=== PATIENT | male | born 1975 | race Caucasian/White ===

== ENCOUNTER 2017-01-22 09:21 | Inpatient (IN) ==
[2017-01-22 10:03] LABS: BASOPHILS # (AUTO) 0.1 K/uL (0-0.2); BASOPHILS % (AUTO) 0.6 % (0.0-3.0); EOSINOPHILS # (AUTO) 0.4 K/ul (0.0-0.7); EOSINOPHILS % (AUTO) 4.1 % (0.0-7.0); HEMATOCRIT 46.1 % (42.0-52.0); HEMOGLOBIN 15.8 g/dl (14.0-18.0); IMMATURE GRANULOCYTE % (AUTO) 0.4 % (0.0-5.0); LYMPHOCYTES # (AUTO) 2.7 K/uL (0.60-3.4); LYMPHOCYTES % (AUTO) 26.9 (10.0-50.0); MEAN CORPUSCULAR HEMOGLOBIN 30.1 pg (27.0-31.0); MEAN CORPUSCULAR HGB CONC 34.3 (31.8-35.4); MEAN CORPUSCULAR VOLUME 87.8 fl (80.0-94.0); MONOCYTES # (AUTO) 0.4 K/uL (0.4-2.0); MONOCYTES % (AUTO) 4.2 (0-10); NEUTROPHILS # (AUTO) 6.4 K/ul (2.0-6.9); NEUTROPHILS % (AUTO) 63.8; PLATELET COUNT 258 10^3/uL (140-440); RED BLOOD COUNT 5.25 10^6/ul (4.70-6.10); WHITE BLOOD COUNT 9.97 K/ul (4.2-10.2)
[2017-01-22 10:24] LABS: ALBUMIN 3.7 g/dL (3.4-5.0); ALBUMIN/GLOBULIN RATIO 0.97; ANION GAP 19.1; BILIRUBIN,TOTAL 0.47 mg/dL (0.00-1.20); BUN/CREATININE RATIO 13.68; CALCIUM 9.8 mg/dL (8.2-10.2); CREATININE 0.95 mg/dL (0.60-1.10); POTASSIUM 4.1 mmol/L (3.5-5.1); TOTAL PROTEIN 7.5 g/dL (6.4-8.2)
[2017-01-22 10:30] LABS: CREATINE KINASE 38 U/L
--- NOTE | 2017-01-22 11:29 | ED.PDOC ---
General ED Provider: Dr. BEATRIZ VOGT Chief Complaint: Hypertension Stated Complaint: hypertension Time Seen by Physician: 09:22 (jaw pain) Mode of Arrival: Walk-In Information Source: Patient Exam Limitations: No limitations Primary Care Provider: BEATRIZ RAYMOND Nursing and Triage Documentation Reviewed and Agree: Yes Cardiovascular Complaint Exam - Hypertension Complaint/Exam Onset/Duration: this morning Symptoms Are: Resolved Timing: Intermittent Reported B/P Prior to Arrival: 199/100 Aggravating: Reports: None Alleviating: Reports: None Associated Signs and Symptoms: Denies: Chest pain, Vision changes, Anxiety, Recent stress, Headache, Numbness, Tingling, Weakness, Dizziness, Short of air, Swelling Related History: Reports: Similar episode Related Surgical History: Reports: None Cardiac Risk Factors: Reports: Hypertension Recent Change in Medications: No A/V Nicking: No Papilledema Present: No JVD Present: No Carotid Bruit Present: No Femoral Pulses Bounding: No Quality Indicator For Non-Traumatic Chest Pain/Syncope: EKG Performed Review of Systems - Review Of Systems Constitutional: Reports: No symptoms Eyes: Reports: No symptoms Ears, Nose, Mouth, Throat: Reports: Mouth pain (jaw pain ) Respiratory: Reports: No symptoms Cardiac: Reports: No symptoms GI: Reports: No symptoms : Reports: No symptoms Musculoskeletal: Reports: No symptoms Skin: Reports: No symptoms Neurological: Reports: No symptoms Endocrine: Reports: No symptoms Hematologic/Lymphatic: Reports: No symptoms All Other Systems: Reviewed and Negative Past Medical History - Past Medical History Previously Healthy: Yes Endocrine: Reports: None Cardiovascular: Reports: Hypertension Respiratory: Reports: None Hematological: Reports: None Gastrointestinal: Reports: None Genitourinary: Reports: None Neuro/Psych: Reports: None Musculoskeletal: Reports: None Cancer: Reports: None - Surgical History General Surgical History: Reports: None - Family History Family History: Reports: None - Social History Smoking Status: Former smoker Hx Substance Use: No Alcohol Screening: Occasionally Physical Exam - Physical Exam Appearance: Well-appearing, No pain distress, Well-nourished Eyes: [place], EOMI, Conjunctiva clear ENT: Ears normal, Nose normal, Oropharynx normal Respiratory: Airway patent, Breath sounds clear, Breath sounds equal, Respirations nonlabored Cardiovascular: RRR, Pulses normal, No rub, No murmur GI/: Soft, Nontender, No masses, Bowel sounds normal, No Organomegaly Musculoskeletal: Normal strength, ROM intact, No edema, No calf tenderness Skin: Warm, Dry, Normal color Neurological: Sensation intact, Motor intact, Reflexes intact, Cranial nerves intact, Alert, Oriented Psychiatric: Affect appropriate, Mood appropriate Interpretation - Weight Shifter Rate: Tachy Rhythm: Sinus - EKG Interpretation Rate: Tachy Rhythm: Sinus Physician Notification - Case Discussed Physician Notified: melani BASHIR Time of Notification: 11:30 (ADMITT) Admit To: Inpatient Critical Care Note - Critical Care Note Total Time (mins): 0 Course - Course Hematology/Chemistry: 01/22/17 10:00 01/22/17 10:00 Orders, Labs, Meds: Lab Review 01/22/17 10:00 WBC 9.97 RBC 5.25 Hgb 15.8 Hct 46.1 MCV 87.8 MCH 30.1 MCHC 34.3 RDW Coeff of [place] 13.5 Plt Count 258 Immature Gran % (Auto) 0.4 Neut % (Auto) 63.8 Lymph % (Auto) 26.9 [place] % (Auto) 4.2 Eos % (Auto) 4.1 Baso % (Auto) 0.6 Immature Gran # (Auto) 0.0 Neut # 6.4 Lymph # 2.7 [place] # 0.4 Eos # 0.4 Baso # 0.1 Sodium 143 Potassium 4.1 Chloride 99 Carbon Dioxide 29 Anion Gap 19.1 BUN 13 Creatinine 0.95 Estimated GFR (MDRD) 87.00 BUN/Creatinine Ratio 13.68 Glucose 203 H Calcium 9.8 Total Bilirubin 0.47 AST 23 ALT 37 Alkaline Phosphatase 76 Total Creatine Kinase 38 Troponin I < 0.0100 Total Protein 7.5 Albumin 3.7 Globulin 3.8 Albumin/Globulin Ratio 0.97 Orders Category Date Time Status EKG-(ED ONLY) Stat CARDIO 01/22/17 10:05 Completed EKG-(ED ONLY) Stat CARDIO 01/22/17 11:00 Completed CBC W/ AUTO DIFF Stat LAB 01/22/17 10:00 Completed COMPREHENSIVE METABOLIC PANEL Stat LAB 01/22/17 10:00 Completed CREATINE KINASE Stat LAB 01/22/17 10:00 Completed TROPONIN I Stat LAB 01/22/17 10:00 Completed Vital Signs: Temp Pulse Resp BP Pulse Ox 01/22/17 09:22 98.4 F 119 H 20 195/109 H 96 ARAMIS Risk Score ARAMIS Risk Score: Risk Score Odds of by 30D 0 0.1 (0.1-0.2) 1 0.3 (0.2-0.3) 2 0.4 (0.3-0.5) 3 0.7 (0.6-0.9) 4 1.2 (1.0-1.5) 5 2.2 (1.9-2.6) 6 3.0 (2.5-3.6) 7 4.8 (3.8-6.1) Departure - Departure Time of Disposition: 11:30 Disposition: ADMITTED INPATIENT Discharge Problem: Hypertension Qualifiers: Hypertension type: unspecified Qualifier Code: (I10) Essential (primary) hypertension Instructions: Hypertension (ED) Condition: Good Pt referred to PMD for follow-up: Yes Additional Instructions: Please call your Family Physician as soon as possible to schedule a follow-up appointment. Allergies/Adverse Reactions: Allergies Penicillins Adverse Reaction (Verified 01/22/17 09:28) Home Medications: Ambulatory Orders Hydrochlorothiazide 12.5 mg PO DAILY 01/22/17 Lisinopril [Zestril] 40 mg PO DAILY 01/22/17
--- NOTE | 2017-01-22 12:53 | DI ---
Exam: Two x-rays of the chest. Comparison: 12/09/2013. Reason for exam: Hypertension with pain. FINDINGS: No pneumothorax, pleural effusion, focal consolidation. The cardiac silhouette is not en larged. The imaged osseous structures appear grossly unremarkable without acute fracture. Impression: No acute cardiopulmonary process.
[2017-01-22 13:21] VITALS: BMI 39.4
[2017-01-22] MEDS ORDERED: DECADRON 4 MG/ML SDV IVP STA (13:24)
[2017-01-22] MEDS ORDERED: VASOTEC IV IVP PRN (13:25)
[2017-01-22] MEDS ORDERED: TORADOL IVP SCH (13:30)
[2017-01-22] MEDS: SODIUM CHLORIDE 1,000 ML IV SCH (13:38)
[2017-01-22] MEDS: NORVASC PO SCH ×2 (13:45→20:39)
[2017-01-22] MEDS ORDERED: ZEBETA PO SCH (14:00)
[2017-01-22 18:20] LABS: CREATINE KINASE 33 U/L
[2017-01-22] MEDS: TORADOL IVP SCH (20:37)
[2017-01-23 01:49] LABS: BASOPHILS # (AUTO) 0.1 K/uL (0-0.2); BASOPHILS % (AUTO) 0.4 % (0.0-3.0); EOSINOPHILS % (AUTO) 0.1 % (0.0-7.0); HEMATOCRIT 45.2 % (42.0-52.0); HEMOGLOBIN 15.4 g/dl (14.0-18.0); IMMATURE GRANULOCYTE % (AUTO) 0.6 % (0.0-5.0); LYMPHOCYTES # (AUTO) 2.1 K/uL (0.60-3.4); LYMPHOCYTES % (AUTO) 15.4 (10.0-50.0); MEAN CORPUSCULAR HGB CONC 34.1 (31.8-35.4); MEAN CORPUSCULAR VOLUME 87.9 fl (80.0-94.0); MONOCYTES # (AUTO) 0.5 K/uL (0.4-2.0); MONOCYTES % (AUTO) 3.5 (0-10); NEUTROPHILS # (AUTO) 10.9 K/ul (2.0-6.9); PLATELET COUNT 277 10^3/uL (140-440); RED BLOOD COUNT 5.14 10^6/ul (4.70-6.10); WHITE BLOOD COUNT 13.61 K/ul (4.2-10.2)
[2017-01-23] MEDS: SODIUM CHLORIDE 1,000 ML IV SCH ×2 (01:58→16:30)
[2017-01-23 02:08] LABS: ALBUMIN 3.4 g/dL (3.4-5.0); ALBUMIN/GLOBULIN RATIO 0.89; ANION GAP 13.7; BILIRUBIN,TOTAL 0.35 mg/dL (0.00-1.20); BUN/CREATININE RATIO 14.77; CALCIUM 9.8 mg/dL (8.2-10.2); CREATININE 0.88 mg/dL (0.60-1.10); POTASSIUM 4.7 mmol/L (3.5-5.1); TOTAL PROTEIN 7.2 g/dL (6.4-8.2)
[2017-01-23 02:14] LABS: TROPONIN I 0.015 ng/ml (0.0000-0.4000)
[2017-01-23 08:50] LABS: CHOL/HDL RATIO 5.6 (4.5-6.4)
[2017-01-23] MEDS ORDERED: NON-FORMULARY MEDICATION (Hydrochlorothiazide [Hydrochlorothiazide] 12.5 MG) PO SCH ×22 (09:00)
[2017-01-23] MEDS ORDERED: ZEBETA PO SCH (09:00)
[2017-01-23] MEDS ORDERED: ZESTRIL PO SCH (09:00)
[2017-01-23] MEDS: HYDROCHLOROTHIAZIDE PO SCH (09:36)
[2017-01-23] MEDS: NORVASC PO SCH ×2 (09:36→21:09)
[2017-01-23] MEDS: TORADOL IVP SCH ×2 (09:43→21:09)
--- NOTE | 2017-01-23 10:56 | HP ---
DATE OF SERVICE: 01/22/17 HISTORY OF PRESENT ILLNESS: This is a 41-year-old male who presented to the emergency room complaining of headache and left jaw pain. He has history of hypertension. He has not had a regular primary care provider in the past year due to insurance issues so his treatment of hypertension has been sporadic. He also has a history of dyslipidemia. REVIEW OF SYSTEMS: CONSTITUTIONAL: No night sweats. No fatigue, malaise, lethargy. No fever or chills. HEENT: Left-sided jaw pain. Headache. No eye drainage. RESPIRATORY: No shortness of breath. No cough, no congestion. No hemoptysis. CARDIOVASCULAR: Patient reports heaviness at times with exertion. No orthopnea. No angina symptoms. No CHF symptoms. No atypical chest pain for CAD. No palpitations. GASTROINTESTINAL: No abdominal pain. No nausea or vomiting. No diarrhea or constipation. No hematemesis. No hematochezia. GENITOURINARY: No dysuria. No hematuria. No obstructive symptoms. No discharge. No pain. No significant abnormal bleeding. MUSCULOSKELETAL: No musculoskeletal pain. No joint swelling or redness. No weakness. NEUROLOGICAL: Alert and oriented. No deficits. PSYCHIATRIC: Not anxious. No depression. No suicidal thoughts. No homicidal thoughts. SKIN: Intact. ENDOCRINE: No unexplained weight loss. No weight gain. HEMATOLOGIC/LYMPHATIC: No anemia. No purpura. No petechiae. No prolonged or excessive bleeding. No palpable lymph nodes. PERSONAL/FAMILY/SOCIAL HISTORY: Mother - diabetes mellitus, Type 2, coronary artery disease, thyroid cancer. Father - coronary artery disease, by MA. Social: The patient is a smoker 1/2 pack per day. Denies any alcohol or ilicit drug use. Lives with his significant other. 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 Again, has no insurance. PAST MEDICAL: 1. Hypertension 2. Dyslipidemia 3. Obesity 4. GERD 5. Carpal tunnel syndrome right hand PAST SURGICAL HISTORY: 1. Carpal tunnel repair of right hand 2. Colonoscopy and upper GI last year, [address] De La Cruz MEDICATIONS: (HOME) 1. Lisinopril 40 mg p.o. daily 2. Hydrochlorothiazide 12.5 mg p.o. p.r.n. ALLERGIES: PENICILLIN PHYSICAL EXAMINATION: GENERAL: The patient is well-appearing in apparent distress. Well-nourished. VITAL SIGNS: Temperature 98.4, heart rate 119, respirations 20, BP 195/199, pulse ox 96% on room air. HEENT: Unremarkable. Pupils are equal, round and reactive to light and accomodation. Conjunctiva clear. NECK: Supple. No JVD, no carotid bruit. No lymphadenopathy or thyromegaly. LUNGS: Diminished breath sounds bilaterally. Breath sounds clear and equal. Respirations nonlabored. Percussion note normal. Chest symmetrical. HEART: S1, S2, no S3. No murmurs, rubs or gallops. ABDOMEN: Soft. Nontender. Bowel sounds active times four quadrants. No hepatosplenomegaly. No guarding or tenderness. No mass felt. MUSCULOSKELETAL: The patient has full range of motion, normal strength of all extremities. No edema. No calf tenderness. No joint swelling, no redness. SKIN: Intact, warm and dry. NEUROLOGIC: The patient is alert and oriented times three. Cranial nerves intact. PSYCHIATRIC: Affect and mood both appropriate. LYMPHATIC: No palpable lymph nodes/no lymphedema. LABS: White count 9.9, hemoglobin 15.8, hematocrit 46.1. Sodium 143, potassium 4.1, BUN 13, creatinine 0.95. Glucose 203. AST 23, ALT 37, alkaline phosphatase 76, total CK 38, troponin less than 0.01. ASSESSMENT: 1. HYPERTENSION 2. CHEST PAIN WITH EXERTION 3. OBESITY PLAN: 1. Admit patient with routine telemetry orders. 2. Will continue chest pain protocol. 3. Chest x-ray 4. CBC, CMP daily 5. Vasotec 1.25 mg IV push q.6hr p.r.n. for systolic greater than 160 6. Start Zebeta 5 mg daily 7. Start Norvasc 5 mg b.i.d. 8. Lipid panel 9. A1C 10. T4, TSH 11. Regular diet 12. Will monitor closely TIME SPENT: More than 70 minutes. MTDD
--- NOTE | 2017-01-23 13:31 | PCM.PROG ---
Attending Provider: ATTENDING PROVIDER: [facility] DATE OF SERVICE: 01/23/17 SUBJECTIVE: This 41 year old WHITE/ M was hospitalized 01/22/17. The patient is seen with Opal, Nurse Practitioner. The patient is alert, sitting on the side of the bed. He states he slept well. He has been out to smoke. He denies chest pain or jaw pain through the evening. Headache improving. REVIEW OF SYSTEMS: CONSTITUTIONAL: No night sweats. No fatigue, malaise, lethargy. No fever or chills. HEENT: Eyes: No visual changes. No eye pain. No eye discharge. ENT: No runny nose. No epistaxis. No sinus pain. No odynophagia. No congestion. RESPIRATORY: No cough, no congestion. No hemoptysis. No shortness of breath. CARDIOVASCULAR: No angina symptoms. No CHF symptoms. No atypical chest pain for CAD. No palpitations. No orthopnea.. GASTROINTESTINAL: No abdominal pain. No nausea or vomiting. No diarrhea or constipation. No hematemesis. No hematochezia. GENITOURINARY: No urgency. No frequency. No dysuria. No hematuria. No obstructive symptoms. No discharge. No pain. No significant abnormal bleeding. MUSCULOSKELETAL: No musculoskeletal pain; no joint swelling. NEUROLOGICAL: Awake, alert, oriented to time, place and person. Positive for headache. No neck pain. No syncope. No seizures. No dizziness. PSYCHIATRIC: Not anxious. No depression. No suicidal thoughts. No homicidal thoughts. SKIN: No rash. No lesions. No wounds. ENDOCRINE: No unexplained weight loss. No weight gain. HEMATOLOGIC/LYMPHATIC: No anemia. No purpura. No petechiae. No prolonged or excessive bleeding. No palpable lymph nodes. PHYSICAL EXAMINATION: GENERAL: The patient is awake, alert and oriented, lying/sitting in bed in no distress. VITAL SIGNS: Temperature 97.8 F, Pulse 73, Respiratory Rate 23, BP 157/94, Pulse Ox 94% HEENT: Head normocephalic, atraumatic. Eyes: Extraocular muscles are intact. Pupils are equal, round and reactive to light and accommodation. Ears: No lesions. Nose appeared normal. Throat: No exudate or erythema. NECK: Supple. No JVD, no carotid bruit. No lymphadenopathy or thyromegaly. LUNGS: Diminished breath sounds bilaterally. Clear to auscultation. Percussion note normal. Chest symmetrical. HEART: S1, S2, no S3. No murmurs. No cyanosis or clubbing. No ascites. Pulses: Dorsalis pedis and posterior tibial pulses +1 to +2 both sides. ABDOMEN: Soft. Non-tender. Bowel sounds active. No CVA tenderness. No mass felt. EXTREMITIES: No edema. Full range of motion of all extremities, equal. NEUROLOGIC: No focal deficit. Cranial nerves II through XII are grossly intact. No headache, no double vision or headache. SKIN: Not dry. Intact. Turgor-normal. LYMPHATIC: No palpable lymph nodes/no lymphedema. MUSCULOSKELETAL: Normal joints with no swelling. Muscle tone is normal. LAB REVIEW: 01/23/17 01:45 01/23/17 01:45 01/23/17 01:45: WBC 13.61 H, RBC 5.14, Hgb 15.4, Hct 45.2, MCV 87.9, MCH 30.0, MCHC 34.1, RDW Coeff of [place] 13.3, Plt Count 277, Immature Gran % (Auto) 0.6, Neut % (Auto) 80.0, Lymph % (Auto) 15.4, [place] % (Auto) 3.5, Eos % (Auto) 0.1, Baso % (Auto) 0.4, Immature Gran # (Auto) 0.1, Neut # 10.9 H, Lymph # 2.1, [place] # 0.5, Eos # 0.0, Baso # 0.1, Sodium 141, Potassium 4.7, Chloride 103, Carbon Dioxide 29, Anion Gap 13.7, BUN 13, Creatinine 0.88, Estimated GFR (MDRD) 95.00 , BUN/Creatinine Ratio 14.77, Glucose 143 H D, Calcium 9.8, Total Bilirubin 0.35 , AST 20, ALT 37, Alkaline Phosphatase 71, Total Creatine Kinase 34, Troponin I 0.0150, Total Protein 7.2, Albumin 3.4, Globulin 3.8, Albumin/Globulin Ratio 0.89 01/22/17 17:45: Total Creatine Kinase 33, Troponin I < 0.0100 ASSESSMENT: 1. Hypertension 2. Obesity 3. Smoker 4. History of dyslipidemia PLAN: 1. Lipid panel 2. T4, TSH 3. A1C 4. Echo if not done 5. Zestril 40 mg 6. Continue Norvasc Plan and coordination of the patient's care discussed in the presence of Filling Mixer and nurse. CONDITION: Stable SCRIBED BY: WEN ROBERTSON Derrick Hand scribed while in presence of service performed by Dr. SONALI DOMÍNGUEZ-[facility]/OPAL RILEY APRN on 01/23/17 ([id number])
[2017-01-23] MEDS ORDERED: MYLANTA SUSP PO STA (21:03)
[2017-01-23] MEDS: ZESTRIL PO SCH (21:09)
[2017-01-24 04:41] LABS: BASOPHILS # (AUTO) 0.1 K/uL (0-0.2); BASOPHILS % (AUTO) 0.9 % (0.0-3.0); EOSINOPHILS # (AUTO) 0.3 K/ul (0.0-0.7); EOSINOPHILS % (AUTO) 2.4 % (0.0-7.0); HEMATOCRIT 43.2 % (42.0-52.0); HEMOGLOBIN 14.5 g/dl (14.0-18.0); IMMATURE GRANULOCYTE % (AUTO) 0.6 % (0.0-5.0); LYMPHOCYTES # (AUTO) 4.3 K/uL (0.60-3.4); LYMPHOCYTES % (AUTO) 38.2 (10.0-50.0); MEAN CORPUSCULAR HEMOGLOBIN 29.8 pg (27.0-31.0); MEAN CORPUSCULAR HGB CONC 33.6 (31.8-35.4); MEAN CORPUSCULAR VOLUME 88.9 fl (80.0-94.0); MONOCYTES # (AUTO) 0.6 K/uL (0.4-2.0); MONOCYTES % (AUTO) 5.3 (0-10); NEUTROPHILS # (AUTO) 5.9 K/ul (2.0-6.9); NEUTROPHILS % (AUTO) 52.6; PLATELET COUNT 249 10^3/uL (140-440); RED BLOOD COUNT 4.86 10^6/ul (4.70-6.10); WHITE BLOOD COUNT 11.27 K/ul (4.2-10.2)
[2017-01-24 05:02] LABS: ALBUMIN 3.1 g/dL (3.4-5.0); ALBUMIN/GLOBULIN RATIO 0.91; ANION GAP 15.6; BILIRUBIN,TOTAL 0.24 mg/dL (0.00-1.20); BUN/CREATININE RATIO 17.34; CREATININE 0.98 mg/dL (0.60-1.10); POTASSIUM 3.6 mmol/L (3.5-5.1); TOTAL PROTEIN 6.5 g/dL (6.4-8.2)
[2017-01-24] MEDS: SODIUM CHLORIDE 1,000 ML IV SCH (05:09)
[2017-01-24 05:37] VITALS: BP 133/78; TEMP 97.5
[2017-01-24] MEDS: HYDROCHLOROTHIAZIDE PO SCH (08:51)
[2017-01-24] MEDS: TORADOL IVP SCH (08:51)
[2017-01-24] MEDS: NORVASC PO SCH (08:52)
[2017-01-24] MEDS: ZESTRIL PO SCH (08:52)
[2017-01-24] MEDS ORDERED: ZEBETA PO SCH (09:00)
--- NOTE | 2017-01-24 10:37 | CM.DICTOOL ---
ADMISSION: 01/22/17 11:34 DISCHARGE: 01/24/17 DATE OF SERVICE: 01/24/17 FINAL DIAGNOSIS HYPERTENSION, UNCONTROLLED JAW PAIN, R/O CAD DYSLIPIDEMIA COPD (CURRENT SMOKER) OBESITY (BMI 39.4) GERD CARPAL TUNNEL REPAIR, RIGHT COLONOSCOPY AND UPPER GI, 2016 (DR. MOON) LAST VITALS Temp Pulse Resp BP Pulse Ox 97.5 F L 84 18 133/78 93 L 01/24/17 05:36 01/24/17 05:36 01/24/17 05:36 01/24/17 05:36 01/24/17 05:36 ACTIVE MEDICATIONS Amlodipine Besylate (Norvasc) 5 mg PO BEDTIME SHAVONNE (NEW PRESCRIPTION) Last Admin: 01/24/17 08:52 Dose: 5 mg Hydrochlorothiazide 12.5 mg PO PRN (DISCONTINUED HOME MEDICATION) Lisinopril (Zestril) 40 mg PO BID SHAVONNE (NEW PRESCRIPTION INCREASED FROM HOME DOSE) Last Admin: 01/24/17 08:52 Dose: 40 mg ALLERGIES Penicillins Adverse Reaction (Verified 01/22/17 09:28) NEW PRESCRIPTIONS: TENORETIC 50-25 MG, TAKE ONE TABLET BY MOUTH DAILY NORVASC 10 MG, TAKE ONE TABLET BY MOUTH AT BEDTIME DAILY ZESTRIL 40 MG, TAKE ONE TABLET BY MOUTH TWICE DAILY PRAVACHOL 40 MG, TAKE ONE TABLET BY MOUTH AT BEDTIME FENOFIBRATE 160 MG, TAKE ONE TABLET BY MOUTH DAILY SMOKING: SMOKING CESSATION HAS BEEN DISCUSSED WITH THE PATIENT. HE HAS BEEN MADE AWARE OF THE ADDED RISK TO HIS CARDIOVASCULAR HEALTH SHOULD HE CONTINUE THIS HABIT. HE UNDERSTANDS THESE IMPLICATIONS BUT HAS NOT COMMITTED TO STOPPING. WE WILL CONTINUE TO PROVIDE ENCOURAGEMENT FOR COMPLETE CESSATION AND REINFORCE TEACHING REGARDING THE RISKS AND BENEFITS. DISEASE SPECIFIC EDUCATION: HYPERTENSION ECHO/STRESS ECHO RESULTS MEDICATIONS HOME MEDICATIONS LIFESTYLE CHANGES NECESSARY TO REDUCE RISK FOR CAD SMOKING CESSATION ACTIVITY, DIET, WEIGHT LOSS FOLLOW UP LAB REVIEW: 01/24/17 04:30 01/24/17 04:30 01/24/17 04:30: WBC 11.27 H, RBC 4.86, Hgb 14.5, Hct 43.2, MCV 88.9, MCH 29.8, MCHC 33.6, RDW Coeff of [place] 13.5, Plt Count 249, Immature Gran % (Auto) 0.6, Neut % (Auto) 52.6, Lymph % (Auto) 38.2, [place] % (Auto) 5.3, Eos % (Auto) 2.4, Baso % (Auto) 0.9, Immature Gran # (Auto) 0.1, Neut # 5.9, Lymph # 4.3 H, [place] # 0.6, Eos # 0.3, Baso # 0.1, Sodium 144, Potassium 3.6, Chloride 102, Carbon Dioxide 30, Anion Gap 15.6, BUN 17, Creatinine 0.98, Estimated GFR (MDRD) 84.00 , BUN/Creatinine Ratio 17.34, Glucose 213 H, Calcium 9.0, Total Bilirubin 0.24, AST 17, ALT 34, Alkaline Phosphatase 66, Total Protein 6.5, Albumin 3.1 L, Globulin 3.4, Albumin/Globulin Ratio 0.91 PLAN: DISCHARGE HOME TODAY RETURN TO SEE DR. DOMÍNGUEZ IN ONE WEEK. PLEASE PHONE HIS OFFICE TO SCHEDULE YOUR FOLLOW UP APPOINTMENT ([phone]) DISCONTINUE YOUR HOME MEDICATIONS NEW PRESCRIPTIONS: TENORETIC 50-25 MG, TAKE ONE TABLET BY MOUTH DAILY NORVASC 10 MG, TAKE ONE TABLET BY MOUTH AT BEDTIME DAILY ZESTRIL 40 MG, TAKE ONE TABLET BY MOUTH TWICE DAILY PRAVACHOL 40 MG, TAKE ONE TABLET BY MOUTH AT BEDTIME FENOFIBRATE 160 MG, TAKE ONE TABLET BY MOUTH DAILY ACTIVITY: GET PLENTY OF REST AT HOME. GRADUALLY INCREASE YOUR ACTIVITY LEVEL ACCORDING TO YOUR TOLERATION DIET: HEALTHY HEART LOW SODIUM SUMMARY: THE PATIENT IS ALERT AND ORIENTED X3. HE CURRENTLY RESIDES AT HOME WITH HIS SIGNIFICANT OTHER. HE IS INDEPENDENT WITH ADL'S AND REQUIRES NO ASSISTANCE FOR AMBULATION. HE HAS NO HOME HEALTH OR HOMEMAKING SERVICES AT THIS TIME. HE DESIRES TO RETURN TO HIS HOME AT DISCHARGE. THE SKIN TURGOR IS INTACT AND WITHOUT DECUBITUS ULCERS. HYDRATION STATUS IS GOOD. THE PATIENT'S BLOOD PRESSURE READINGS HAVE RESPONDED VERY WELL TO THE MEDICATIONS ADDED. MR. PARSONS IS AWARE AND AGREEABLE FOR DISCHARGE PLANS TODAY. CURRENT CODE STATUS: FULL CODE SONALI DOMÍNGUEZ M.D.
--- NOTE | 2017-01-24 11:59 | ECHOSTRESS ---
Date of Exam: 01/24/17 Ordering Physician: HOSPITALIST--SONALI DOMÍNGUEZ Reason for Echo: HYPERTENSION, HEADACHE, JAW PAIN, STRESS TEST--NO ISCHEMIA M-Mode Normal Adult Results LV Dimensions Normal Adult Results AoV Opening excursions >1.6 LVEDD-base- 3.5-5.8 Ao root dimensions 2.0-3.7 LVESD-base- 3.1-4.6 L. Atrium dimensions 1.9-3.8 Post. Wall thickness 0.8-1.1 IV septum (thickness) 0.7-1.2 Post. Wall excursion 0.72-1.3 Septal motion Systolic motion R. Ventricular cavity 1.5-2.0 LVEF 60% Paradoxical septal wall motion 2-D: NORMAL LEFT VENTRICULAR CONTRACTILITY--RESTING AND POST EXERCISE M-MODE: MV: AV: TV: PV: CHAMBER SIZE: WALL MOTION: NORMAL LEFT VENTRICULAR CONTRACTILITY--RESTING AND POST EXERCISE PERICARDIUM: INTERPRETATION: 1. NORMAL LEFT VENTRICULAR CONTRACTILITY--RESTING AND POST EXERCISE MTDD
--- NOTE | 2017-01-24 12:05 | ECHO2D ---
Date of Exam: 01/24/17 Ordering Physician: HOSPITALIST--SONALI DOMÍNGUEZ Room #: [id number] Reason for Echo: HYPERTENSION, HEADACHE M-Mode Normal Adult Results LV Dimensions Normal Adult Results AoV Opening excursions >1.6 >1.6 LVEDD-base- 3.5-5.8 5.1 Ao root dimensions 2.0-3.7 3.9 LVESD-base- 3.1-4.6 L. Atrium dimensions 1.9-3.8 4.2 Post. Wall thickness 0.8-1.1 1.4 IV septum (thickness) 0.7-1.2 1.4 Post. Wall excursion 0.72-1.3 NORMAL Septal motion NORMAL Systolic motion R. Ventricular cavity 1.5-2.0 NORMAL LVEF 60% 52% Paradoxical septal wall motion NORMAL 2-D : MILDLY ENLARGED LEFT ATRIAL CAVITY--NORMAL VALVES--NORMAL LEFT VENTRICULAR CONTRACTILITY--NO EFFUSION, NO THROMBUS M-MODE: MV: NORMAL AV: NORMAL TV: NORMAL PV: CHAMBER SIZE: ENLARGED LEFT ATRIAL CAVITY WALL MOTION: NORMAL PERICARDIUM: NORMAL INTERPRETATION: 1. LEFT VENTRICULAR HYPERTROPHY WITH STIFF LEFT VENTRICLE-LEFT VENTRICULAR EJECTION FRACTION 52% 2. MILDLY ENLARGED LEFT ATRIAL CAVITY 3. NORMAL VALVES 4. NORMAL LEFT VENTRICLE SIZE MTDD
[2017-01-25 06:13] LABS: TESTOSTERONE 278 ng/dL (264-916)
--- NOTE | 2017-01-25 12:58 | PN ---
DATE OF SERVICE: 01/23/17 SUBJECTIVE: The patient is a 41 year old white male hospitalized with chest pain, hypertension, several cardiac risk factors. The patient's condition is stable. His blood pressure is coming down. This morning it was reported 157/94. This patient is now going to be on Zestril 40mg twice a day, Zebeta 5mg PO daily and Norvasc 5 twice a day. He is feeling better, no chest pain. He is up and about. REVIEW OF SYSTEMS: CONSTITUTIONAL: No night sweats. No fatigue, malaise, lethargy. No fever or chills. HEENT: Eyes: No visual changes. No eye pain. No eye discharge. ENT: No runny nose. No epistaxis. No sinus pain. No sore throat. No odynophagia. No congestion. RESPIRATORY: No cough, no congestion. No hemoptysis. No shortness of breath. CARDIOVASCULAR: No angina symptoms. No CHF symptoms. No atypical chest pain for CAD. No palpitations. No orthopnea. GASTROINTESTINAL: No abdominal pain. No nausea or vomiting. No diarrhea or constipation. No hematemesis. No hematochezia. GENITOURINARY: No urgency. No frequency. No dysuria. No hematuria. No obstructive symptoms. No discharge. No pain. No significant abnormal bleeding. MUSCULOSKELETAL: No musculoskeletal pain; no joint swelling. NEUROLOGICAL: No headache. No neck pain. No syncope. No seizures. No dizziness. PSYCHIATRIC: Not anxious. No depression. No suicidal thoughts. No homicidal thoughts. SKIN: No rash. No lesions. No wounds. ENDOCRINE: No unexplained weight loss. No weight gain. HEMATOLOGIC/LYMPHATIC: No anemia. No purpura. No petechiae. No prolonged or excessive bleeding. No palpable lymph nodes. PHYSICAL EXAMINATION: GENERAL: The is with the patient. HEENT: Head normocephalic, atraumatic. Eyes: Extraocular muscles are intact. Pupils are equal, round and reactive to light and accommodation. Ears: No lesions. Nose appeared normal. Throat: No exudate or erythema. NECK: Supple. No JVD, no carotid bruit. No lymphadenopathy or thyromegaly. LUNGS: Clear to auscultation. Percussion note normal. Chest symmetrical. HEART: S1, S2, no S3. No murmurs. No cyanosis or clubbing. No ascites. Pulses: Dorsalis pedis and posterior tibial pulses +1 to +2 both sides. ABDOMEN: Soft. Nontender. Bowel sounds active. No CVA tenderness. No mass felt. EXTREMITIES: No edema. Full range of motion of all extremities, equal. NEUROLOGIC: No focal deficit. Cranial nerves II through XII are grossly intact. No headache, no double vision or headache. SKIN: Not dry. Intact. Turgor - normal. LYMPHATIC: No palpable lymph nodes/no lymphedema. MUSCULOSKELETAL: Normal joints with no swelling. Muscle tone is normal. ASSESSMENT: 1. Chest pain, controlled 2. Jaw pain, controlled 3. Hypertension, a lot better 4. Obesity, counseling for morbid obesity done. Refuses bariatric center referral. PLAN: 1. Echo and stress echo in the morning The patient was seen with Nurse Practitioner. TIME SPENT: More than 30 minutes. Plan and coordination of the patient's care discussed in the presence of nurse. LETICIA
--- NOTE | 2017-01-25 14:47 | DS ---
DATE OF SERVICE: 01/24/17 FINAL DIAGNOSIS: 1. Hypertension, uncontrolled 2. Jaw pain, rule out coronary artery disease 3. Dyslipidemia 4. COPD (Current smoker) 5. Obesity (BMI 39.4) 6. GERD 7. Carpel Tunnel Repair, right 8. Colonoscopy and upper GI, 2016 (Dr. De La Cruz) LAST VITALS: Temperature 97.5, pulse 84, respiratory rate 18, blood pressure 133/78 and pulse ox 93%. DISCHARGE INSTRUCTIONS: Discharge home today. Return to see Dr. Johnson in one week. Discontinue your home medications. MEDICATIONS AT DISCHARGE: Norvasc 5nmg PO bedtime(NEW PRESCRIPTION) Hydrochlorothiazide 125mg PO PRN (DISCONTINUED HOME MEDICATION) Zestril 40mg twice a day (NEW PRESCRIPTION INCREASED FROM HOME DOSE) ALLERGIES: Penicillin NEW PRESCRIPTION: Tenoretic 50-25mg take one tablet PO daily Norvasc 10mg take one tablet PO at bedtime daily Zestril 40mg take one tablet PO twice daily Pravachol 40ng Take one tablet PO bedtime Fenofibrate 160mg PO daily DIET INSTRUCTIONS: Healthy heart Low Sodium ACTIVITY: Get plenty to rest at home. Gradually increase activity level according to toleration SMOKING: Smoking cessation has been discussed with the patient. he has been made aware of the added risk to his cardiovascular health should he continue this habit. He understands these implications but has no committed to stopping. We will continue to provide encouragement for complete cessation and reinforce teaching regarding the risks and benefits. 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 The patient had jaw pain; questionable, no chest pain, was short of breath. the patient has been under a lot of stress. His own physician declined to refill his medication. His list of medication he used be on Zestril and his blood pressure systolic was more than 200. The patient during the stay in the hospital under went echocardiogram which showed the LVH with enlarged LA cavity. Stress test was negative for ischemia but had severe hypertension with exercise. The patient has been put on Beta Jethro diuretic along with calcium channel jethro and ishmael inhibitors. He was also advised to take baby Aspirin. The patient's lipid profile was abnormal with total cholesterol of 211 and triglycerides are 250 with non-HDL of more than 150mg. He was put on Pravachol 40mg along with Fenofibrate. CAD risk factors discussed with the patient. Advised to quit smoking. Counseling for smoking done. The was with him. Advised to lose weight; he weights 244 pounds with 5'6" tall. He is morbidly obese. Diet discussed for the weight loss. Condition: Stable. The patient is advised not to go back to work until released. He has blood sugar of 213 at the time of discharge. A1c was 5.7. The patient is have random blood sugar done Accu-check before his discharge. The patient is to be followed by me in 5-7 days. CONDITION: Stable. TIME SPENT: More than 60 minutes. LETICIA
--- NOTE | 2017-01-25 14:48 | PN ---
01/22/17: Level 5 01/23/17: Intermediate 01/24/17: D as in discharge MTDD
--- NOTE | 2017-01-30 12:34 | STRESSECHO ---
Date of Test: 01/24/17 Reason for Exam: HYPERTENSION, HEADACHE Ordering Physician: HOSPITALIST--SONALI DOMÍNGUEZ Current Medications: NORVASC, HCTZ, ZESTRIL Physical Findings: S1, S2, NO S3 Resting EKG: SINUS RHYTHM/ NO ACUTE CHANGES Target Heart Rate: 151 STAGE MPH/GRADE HEART RATE BPM BLOOD PRESSURE mmhg RHYTHM S-T SEGMENT +/- UP DOWN SYMPTOMS,COMMENTS At Rest 71 138/82 SR X NONE 1 1.7/10% 100 180/102 SR X NONE 2 2.5/12% 120 198/112 SR X NONE 3 3.4/14% 4 4.2/16% 5 5.0/18% Immediately after 135 SR X FATIGUE Durations of Exercise: 7:02 Maximum Heart Rate Reached: 135 Reason for Termination: FATIGUE INTERPRETATION: 95% OXYGEN SATURATION AT REST /97% OXYGEN SATURATION WITH EXERCISE METS 10.6 1. NO EVIDENCE OF ISCHEMIA BY ST-T WAVE CHANGES 2. NO JAW PAIN OR CHEST DISCOMFORT OR PAIN 3. MODERATE TO SEVERE HYPERTENSION WITH EXERCISE 4. NO ARRHYTHMIAS NORMAL LEFT VENTRICULAR CONTRACTILITY--RESTING AND POST EXERCISE MTDD
== END 2017-01-24 13:51 | disposition home or self-care (01) | DRG 305 ==
LOC: ED 09:21 → MEDSURG B 11:34
PROVIDERS: ADMIT Internal Medicine; ATTEND Internal Medicine
DX: I10 Essential (primary) hypertension (principal); R68.84 Jaw pain; I25.10 Atherosclerotic heart disease of native coronary artery without angina pectoris; I51.7 Cardiomegaly; R51 Headache; E78.5 Hyperlipidemia, unspecified; J44.9 Chronic obstructive pulmonary disease, unspecified; E66.01 Morbid (severe) obesity due to excess calories; K21.9 Gastro-esophageal reflux disease without esophagitis; Z68.39 Body mass index [BMI] 39.0-39.9, adult; F17.200 Nicotine dependence, unspecified, uncomplicated; Z79.899 Other long term (current) drug therapy; Z71.6 Tobacco abuse counseling; Z82.49 Family history of ischemic heart disease and other diseases of the circulatory system
CPT/HCPCS: 36415; 80053; 80061; 82550; 83036; 84403; 84439; 84443; 84484; 85025; 93005; 93010; 97802; 99284

== ENCOUNTER 2017-02-11 12:08 | Outpatient (CLI) | END 2017-02-11 12:09 | disposition home or self-care (01) | LOC: CAR 12:08 | PROVIDERS: ATTEND Internal Medicine | DX: G47.30 Sleep apnea, unspecified (principal) | CPT/HCPCS: 95811 ==

== ENCOUNTER 2017-12-20 11:41 | Emergency (ER) ==
[2017-12-20] MEDS ORDERED: DECADRON 4 MG/ML SDV IM STA (11:49)
[2017-12-20 11:53] VITALS: BP 172/102; TEMP 98.7; BMI 45.1
--- NOTE | 2017-12-20 12:09 | DI ---
EXAM: Three views of the left foot HISTORY: Left foot pain and edema. COMPARISON: None FINDINGS: There is no cortical irregularity or displaced fracture of the left foot. There is no lyti c or blastic lesion. There is mild degenerative change of the first MTP joint. There is mild degene rative change in the midfoot. The soft tissues demonstrate mild swelling. IMPRESSION: 1. Mild soft tissue swelling with no displaced fracture. 2. Mild degenerative change in the midfoot.
--- NOTE | 2017-12-20 12:36 | ED.PDOC ---
General ED Provider: Dr. BEATRIZ VOGT Chief Complaint: Extremity Swelling/Pain Stated Complaint: left foot pain edema Time Seen by Physician: 11:45 (seen with nurse at all times ) Mode of Arrival: Walk-In Information Source: Patient Exam Limitations: No limitations Primary Care Provider: [facility] Nursing and Triage Documentation Reviewed and Agree: Yes Does patient meet sepsis criteria?: No System Inflammatory Response Syndrome: Not Applicable Sepsis Protocol: For patient's 13 years and over: Temp is 96.8 and below OR 101 and greater Pulse >90 BPM Resp >20/minute Acutely Altered Mental Status Are patient's symptoms suggestive of a new infection, such as: -Pneumonia -Skin, Soft Tissue -Endocarditis -UTI -Bone, Joint Infection -Implantable Device -Acute Abdominal Infection -Wound Infection -Meningitis -Blood Stream Catheter Infection -Unknown Musculoskeletal Complaint Exam - Ankle/Foot Complaint/Exam Location of Injury: Reports: Left, Foot Mechanism of Injury: Reports: Trauma Onset/Duration: 2 days Symptoms Are: Reports: Still present Onset of Pain: Reports: Hours Initial Severity: Moderate Current Severity: Moderate Location: Reports: Discrete (left foot ) Character: Reports: Burning Alleviating: Reports: Rest Aggravating: Reports: Movement, Weight bearing, Prolonged standing Able to Bear Weight: Yes Associated Signs and Symptoms: Reports: Swelling. Denies: Redness, Bruising, Fever, Weakness, Numbness, Tingling (see photos) Gout Risk Factors: Reports: >40 years old, Male, HTN Related Surgical History: Reports: None Lower Extremity Findings: Present: Swelling, Erythema, Warmth. Absent: Ecchymosis, Abnormal contour, Rotation, Ligamentous instability, Laceration, Blisters, Other joint pain, Foreign body, Tenderness, Limited range of motion Achilles Tendon Abnormality: No Tenderness: Present: Midfoot Differential Diagnosis: Closed Fracture, Gout, Sprain, Strain Review of Systems - Review Of Systems Constitutional: Reports: No symptoms Eyes: Reports: No symptoms Ears, Nose, Mouth, Throat: Reports: No symptoms Respiratory: Reports: No symptoms Cardiac: Reports: No symptoms GI: Reports: No symptoms : Reports: No symptoms Musculoskeletal: Reports: Gout Skin: Reports: No symptoms Neurological: Reports: No symptoms Endocrine: Reports: No symptoms Hematologic/Lymphatic: Reports: No symptoms All Other Systems: Reviewed and Negative Past Medical History - Past Medical History Previously Healthy: Yes Endocrine: Reports: None Cardiovascular: Reports: Hypertension Respiratory: Reports: None Hematological: Reports: None Gastrointestinal: Reports: None Genitourinary: Reports: None Neuro/Psych: Reports: None Musculoskeletal: Reports: None Cancer: Reports: None - Surgical History General Surgical History: Reports: None - Family History Family History: Reports: None - Social History Smoking Status: Light tobacco smoker Hx Substance Use: No Alcohol Screening: Occasionally - Immunizations Tetanus Shot up to Date: No Physical Exam - Physical Exam Appearance: Well-appearing, No pain distress, Well-nourished Eyes: ORQUIDEA, EOMI, Conjunctiva clear ENT: Ears normal, Nose normal, Oropharynx normal Respiratory: Airway patent, Breath sounds clear, Breath sounds equal, Respirations nonlabored Cardiovascular: RRR, Pulses normal, No rub, No murmur GI/: Soft, Nontender, No masses, Bowel sounds normal, No Organomegaly Musculoskeletal: Edema (left foot see photos) Skin: Warm, Dry, Normal color Neurological: Sensation intact, Motor intact, Reflexes intact, Cranial nerves intact, Alert, Oriented Psychiatric: Affect appropriate, Mood appropriate Critical Care Note - Critical Care Note Total Time (mins): 0 Course - Course Orders, Labs, Meds: Orders Category Date Time Status URIC ACID Stat LAB 12/20/17 12:15 Received Dexamethasone 4 mg/ml Inj [Decadron 4 mg/ml Sdv] MEDS 12/20/17 11:49 Discontinued 8 mg IM ONCE STA FOOT, LEFT 3 VIEWS Stat RADS 12/20/17 11:49 Completed Medications Discontinued Medications Generic Name Dose Route Start Last Admin Trade Name Draganq PRN Reason Stop Dose Admin Dexamethasone Sodium Phosphate 8 mg 12/20/17 11:49 12/20/17 12:05 Decadron 4 Mg/Ml Sdv IM 12/20/17 11:50 8 mg ONCE STA Administration Vital Signs: Temp Pulse Resp BP Pulse Ox 12/20/17 11:42 98.7 F 95 H 16 172/102 H 96 Departure - Departure Time of Disposition: 12:36 Disposition: HOME SELF-CARE Discharge Problem: Edema of lower extremity, Foot pain, left Instructions: Arthralgia (ED), Gout (ED), Low Purine Diet (ED) Condition: Good Pt referred to PMD for follow-up: Yes IPMP verified?: No Additional Instructions: Please call your Family Physician as soon as possible to schedule a follow-up appointment. Allergies/Adverse Reactions: Allergies Penicillins Adverse Reaction (Verified 12/20/17 11:46) Home Medications: Ambulatory Orders Atenolol/Chlorthalidone [Tenoretic 50 Tablet] 1 each PO DAILY #30 tablet Fenofibrate [Triglide] 160 mg PO DAILY #30 tablet 01/24/17 Lisinopril [Zestril] 40 mg PO BID #60 tablet 01/24/17 Pravastatin Sodium [Pravachol] 40 mg PO BEDTIME #30 tablet 01/24/17 Aspirin [Aspirin Ec] 81 mg PO DAILY 04/17/17 Hydrocodone/Acetaminophen [[place] 10-325 Tablet] 1 each PO Q8HR #10 tablet Disposition Discussed With: Patient, Family
== END 2017-12-20 12:43 | disposition home or self-care (01) ==
LOC: ED 11:41
DX: R60.0 Localized edema (principal); M79.672 Pain in left foot; I10 Essential (primary) hypertension; F17.210 Nicotine dependence, cigarettes, uncomplicated
CPT/HCPCS: 36415; 84550; 96372; 99282

== ENCOUNTER 2017-12-27 10:25 | Outpatient (CLI) | END 2017-12-27 10:26 | disposition home or self-care (01) | LOC: RHC-LAB 10:25 | PROVIDERS: ATTEND Emergency Medicine | DX: E11.9 Type 2 diabetes mellitus without complications (principal); I10 Essential (primary) hypertension; M1A.0720 Idiopathic chronic gout, left ankle and foot, without tophus (tophi); E66.9 Obesity, unspecified; Z12.5 Encounter for screening for malignant neoplasm of prostate | CPT/HCPCS: 36415; 80053; 80061; 83036; 84443; 85025 ==

== ENCOUNTER 2018-02-17 12:47 | Outpatient (CLI) | END 2018-02-17 12:48 | disposition home or self-care (01) | LOC: RHC-LAB 12:47 | PROVIDERS: ATTEND Nurse Practitioner Family | DX: M10.9 Gout, unspecified (principal) | CPT/HCPCS: 36415; 84550 ==

== ENCOUNTER 2018-05-14 10:50 | Inpatient (IN) ==
--- NOTE | 2018-05-14 12:08 | ED.PDOC ---
General ED Provider: Dr. BEATRIZ VOGT Chief Complaint: Diabetes Stated Complaint: history of diabetes now has increased urination and thirst no chest no pain or discomfort Time Seen by Physician: 11:00 (seen with the pt's RN AT ALL TIMES ) Mode of Arrival: Walk-In Information Source: Patient Exam Limitations: No limitations Primary Care Provider: ADRIA BOSWELL Nursing and Triage Documentation Reviewed and Agree: Yes Does patient meet sepsis criteria?: No System Inflammatory Response Syndrome: Not Applicable Sepsis Protocol: For patient's 13 years and over: Temp is 96.8 and below OR 101 and greater Pulse >90 BPM Resp >20/minute Acutely Altered Mental Status Are patient's symptoms suggestive of a new infection, such as: -Pneumonia -Skin, Soft Tissue -Endocarditis -UTI -Bone, Joint Infection -Implantable Device -Acute Abdominal Infection -Wound Infection -Meningitis -Blood Stream Catheter Infection -Unknown Endocrine Complaint Exam - Diabetic Complication Complaint/Exam Onset/Duration: 2 DAYS Symptoms Are: Resolved Timing: Intermittent Initial Severity: Mild Current Severity: None Character: Alert Aggravating: Reports: Diet change ( ) Alleviating: Reports: None Associated Signs and Symptoms: Denies: Decreased LOC, Polydipsia, Polyuria, Polyphagia, Weight loss, Abdominal pain, Nausea, Vomiting, Fever, Diaphoresis, Fruity breath Related History: Reports: DM 2 Cardiac Risk Factors: Reports: DM, Elevated lipids CVA Risk Factors: Reports: DM Related Surgical History: Reports: None Acetone on Breath: No Dry Mucous Membranes: No Kussmaul Respirations: No Glascow Coma Scale (see protocol): 15 Meningeal Signs: No Focal Weakness: None Focal Sensory Loss: None Gait: Normal Nystagmus Present: No Gag Reflex Present: No Finger to Nose: Normal Babinski Sign: Negative Right, Negative Left Differential Diagnoses: Diabetic Ketoacidosis, Hyperosmolar State, Hypoglycemia Quality Indicator For Non-Traumatic Chest Pain/Syncope: EKG Performed Review of Systems - Review Of Systems Constitutional: Reports: No symptoms Eyes: Reports: No symptoms Ears, Nose, Mouth, Throat: Reports: No symptoms Respiratory: Reports: No symptoms Cardiac: Reports: No symptoms GI: Reports: No symptoms : Reports: No symptoms Musculoskeletal: Reports: No symptoms Skin: Reports: No symptoms Neurological: Reports: No symptoms Endocrine: Reports: No symptoms Hematologic/Lymphatic: Reports: No symptoms All Other Systems: Reviewed and Negative Past Medical History - Past Medical History Previously Healthy: Yes Endocrine: Reports: None Cardiovascular: Reports: Hypertension Respiratory: Reports: None Hematological: Reports: None Gastrointestinal: Reports: None Genitourinary: Reports: None Neuro/Psych: Reports: None Musculoskeletal: Reports: None Cancer: Reports: None - Surgical History General Surgical History: Reports: None - Family History Family History: Reports: None - Social History Smoking Status: Current every day smoker, Heavy tobacco smoker Hx Substance Use: No Alcohol Screening: Occasionally Physical Exam - Physical Exam Appearance: Well-appearing, No pain distress, Well-nourished Eyes: ORQUIDEA, EOMI, Conjunctiva clear ENT: Ears normal, Nose normal, Oropharynx normal Respiratory: Airway patent, Breath sounds clear, Breath sounds equal, Respirations nonlabored Cardiovascular: RRR, Pulses normal, No rub, No murmur GI/: Soft, Nontender, No masses, Bowel sounds normal, No Organomegaly Musculoskeletal: Normal strength, ROM intact, No edema, No calf tenderness Skin: Warm, Dry, Normal color Neurological: Sensation intact, Motor intact, Reflexes intact, Cranial nerves intact, Alert, Oriented Psychiatric: Affect appropriate, Mood appropriate Physician Notification - Case Discussed Physician Notified: breanne Time of Notification: 13:28 Admit To: Inpatient Critical Care Note - Critical Care Note Total Time (mins): 0 Course - Course Hematology/Chemistry: 05/14/18 11:25 05/14/18 11:25 Orders, Labs, Meds: Lab Review 05/14/18 05/14/18 05/14/18 11:00 11:25 11:25 WBC 10.62 H RBC 4.73 Hgb 14.7 Hct 42.0 MCV 88.8 MCH 31.1 H MCHC 35.0 RDW Coeff of [place] 12.1 Plt Count 295 Immature Gran % (Auto) 0.2 Neut % (Auto) 58.6 Lymph % (Auto) 31.5 Fannin % (Auto) 5.1 Eos % (Auto) 3.8 Baso % (Auto) 0.8 Immature Gran # (Auto) 0.0 Neut # (Auto) 6.2 Lymph # (Auto) 3.3 Fannin # (Auto) 0.5 Eos # (Auto) 0.4 Baso # (Auto) 0.1 Puncture Site O2 Saturation ABG pH ABG pCO2 ABG pO2 ABG HCO3 ABG Total CO2 ABG Base Excess Dick Test FiO2 % Sodium 131.1 L Potassium 4.55 Chloride 94.8 L Carbon Dioxide 26.9 Anion Gap 13.95 BUN 26.7 H Creatinine 1.40 H Estimated GFR (MDRD) 55.00 BUN/Creatinine Ratio 19.07 Glucose 530.6 H* Calcium 9.85 Total Bilirubin 0.40 AST 28.8 ALT 50.7 H Alkaline Phosphatase 71.4 Total Protein 7.94 Albumin 4.21 Globulin 3.73 Albumin/Globulin Ratio 1.12 Urine Color Yellow Urine Clarity Clear Urine pH 6.0 Ur Specific Unity 1.010 Urine Protein Negative Urine Glucose (UA) 2+ Urine Ketones Negative Urine Blood Negative Urine Nitrite Negative Urine Bilirubin Negative Urine Urobilinogen 0.2 Ur Leukocyte Esterase Negative 05/14/18 12:29 WBC RBC Hgb Hct MCV MCH MCHC RDW Coeff of [place] Plt Count Immature Gran % (Auto) Neut % (Auto) Lymph % (Auto) Fann[place] % (Auto) Eos % (Auto) Baso % (Auto) Immature Gran # (Auto) Neut # (Auto) Lymph # (Auto) Fannin # (Auto) Eos # (Auto) Baso # (Auto) Puncture Site R rad O2 Saturation 97.0 ABG pH 7.349 L ABG pCO2 44.2 ABG pO2 93.0 ABG HCO3 24.3 ABG Total CO2 26 ABG Base Excess -1 Dick Test + FiO2 % 21.0 Sodium Potassium Chloride Carbon Dioxide Anion Gap BUN Creatinine Estimated GFR (MDRD) BUN/Creatinine Ratio Glucose Calcium Total Bilirubin AST ALT Alkaline Phosphatase Total Protein Albumin Globulin Albumin/Globulin Ratio Urine Color Urine Clarity Urine pH Ur Specific Unity Urine Protein Urine Glucose (UA) Urine Ketones Urine Blood Urine Nitrite Urine Bilirubin Urine Urobilinogen Ur Leukocyte Esterase Orders Category Date Time Status ABG DRAW REQUEST Stat CARDIO 05/14/18 12:29 Completed BLOOD GLUCOSE MONITORING ACCUCHECK Q6H CARE 05/14/18 13:27 Ordered GIVE HS SNACK 2100 CARE 05/14/18 13:27 Ordered VITAL SIGNS Q8HR CARE 05/14/18 13:27 Ordered ADA 1800 FABIAN. DIET DIETARY 05/14/18 Dinner Ordered HS SNACK DIETARY 05/14/18 Dinner Ordered ABG Stat LAB 05/14/18 12:29 Completed CBC W/ AUTO DIFF DAILY@0600 LAB 05/15/18 06:00 Ordered CBC W/ AUTO DIFF DAILY@0600 LAB 05/16/18 06:00 Ordered CBC W/ AUTO DIFF Stat LAB 05/14/18 11:25 Completed COMPREHENSIVE METABOLIC PANEL DAILY@0600 LAB 05/15/18 06:00 Ordered COMPREHENSIVE METABOLIC PANEL DAILY@0600 LAB 05/16/18 06:00 Ordered COMPREHENSIVE METABOLIC PANEL Stat LAB 05/14/18 11:25 Completed URINALYSIS C & S IF INDICATED Stat LAB 05/14/18 11:00 Completed Amlodipine Besylate [Norvasc] MEDS 05/14/18 21:00 Ordered 10 mg PO BEDTIME Aspirin [Aspirin EC] MEDS 05/15/18 09:00 Ordered 81 mg PO DAILY Atenolol/Chlorthalidone [Tenoretic 50 Tablet] MEDS 05/15/18 09:00 Ordered 1 each PO DAILY Fenofibrate [Triglide] MEDS 05/15/18 09:00 Ordered 160 mg PO DAILY Insulin Regular, Human [Humulin R] MEDS 05/14/18 12:09 Discontinued 9 unit SUBCUT ONCE STA Pravastatin Sodium [Pravachol] MEDS 05/14/18 21:00 Ordered 40 mg PO BEDTIME Ranitidine HCl [Zantac] MEDS 05/14/18 21:00 Ordered 150 mg PO BID Sodium Chloride 0.9% [Sodium Chloride] 1,000 ml MEDS 05/14/18 13:30 Ordered IV 75 mls/hr Zestril MEDS 05/14/18 21:00 Ordered 40 mg PO BID Medications Generic Name Dose Route Start Last Admin Trade Name Freq PRN Reason Stop Dose Admin Aspirin 81 mg 05/15/18 09:00 Aspirin Ec PO DAILY SHAVONNE Fenofibrate 160 mg 05/15/18 09:00 Triglide PO DAILY SHAVONNE Non-Formulary Medication 10 mg 05/14/18 21:00 Amlodipine Besylate [Norvasc] PO BEDTIME SHAVONNE Non-Formulary Medication 1 each 05/15/18 09:00 Atenolol/Chlorthalidone [Tenoretic 50 Tablet] PO DAILY SHAVONNE Non-Formulary Medication 40 mg 05/14/18 21:00 Zestril PO BID SHAVONNE Pravastatin Sodium 40 mg 05/14/18 21:00 Pravachol PO BEDTIME SHAVONNE Ranitidine HCl 150 mg 05/14/18 21:00 Zantac PO BID SHAVONNE Discontinued Medications Generic Name Dose Route Start Last Admin Trade Name Adrian PRN Reason Stop Dose Admin Insulin Human Regular 9 unit 05/14/18 12:09 05/14/18 12:31 Humulin R SUBCUT 05/14/18 12:10 9 unit ONCE STA Administration Vital Signs: Temp Pulse Resp BP Pulse Ox 05/14/18 10:52 98.1 F 85 20 118/78 95 Departure - Departure Time of Disposition: 12:08 Disposition: ADMITTED INPATIENT Discharge Problem: Uncontrolled diabetes mellitus Qualifiers: Diabetes mellitus type: type 2 Glycemic state: with hyperglycemia Qualified Code(s): E11.65 - Type 2 diabetes mellitus with hyperglycemia Instructions: Type 2 Diabetes in the Older Adult (ED) Condition: Good Pt referred to PMD for follow-up: Yes IPMP verified?: No Additional Instructions: Please call your Family Physician as soon as possible to schedule a follow-up appointment.ARVINDIU HAVE A VERY HIGH BLOOD SUGRA THIS RANGE BLOOD SUGRA WILL NOT BE TREATED WITH METFORMIN ALONE. YOU MUST MAKE SURE YOUR SEE YOUR DOCTOR SOON POSSIBLE FAILURE TO DO SO WILL EXPOSED YOU TO MAJOR DEADLY PROBLEMS WHICH CAN RANGE FROM HEART ATTACK, STROKE, VISION AND OTHER ISSUES LIKE DEHYDRATION. PLEASE DO NOT OVERLOOK THIS ISSUE Allergies/Adverse Reactions: Allergies Penicillins Adverse Reaction (Verified 05/14/18 11:13) Home Medications: Ambulatory Orders Aspirin [Aspirin Ec] 81 mg PO DAILY 04/17/17 Ibuprofen 200 mg PO DAILY 12/26/17 Disposition Discussed With: Patient, Family
[2018-05-14] MEDS ORDERED: HUMULIN R SUBCUT STA (12:09)
[2018-05-14] MEDS ORDERED: SODIUM CHLORIDE 1,000 ML IV SCH ×2 (13:30→16:30)
[2018-05-14 14:58] VITALS: BMI 43.7
[2018-05-14] MEDS: TRADJENTA PO SCH (16:34)
[2018-05-14] MEDS ORDERED: DUONEB NEB PRN (17:09)
[2018-05-14] MEDS ORDERED: DUONEB NEB SCH (18:00)
[2018-05-14] MEDS ORDERED: LISINOPRIL 40 MG PO SCH (21:00)
[2018-05-14] MEDS ORDERED: NON-FORMULARY MEDICATION (Amlodipine Besylate [Norvasc] 10 MG) PO SCH (21:00)
[2018-05-14] MEDS: ZANTAC PO SCH (21:31)
[2018-05-14] MEDS: NORVASC PO SCH (21:31)
[2018-05-14] MEDS: ZESTRIL PO SCH (21:31)
[2018-05-14] MEDS: PRAVACHOL PO SCH (21:31)
[2018-05-15] MEDS ORDERED: INFUVITE ADULT IV ONE ×2 (00:47→23:10)
[2018-05-15] MEDS ORDERED: POTASSIUM CHLORIDE 20 MEQ VIAL IV ONE ×2 (00:47→23:10)
[2018-05-15] MEDS: POTASSIUM CHLORIDE IV SCH ×4 (00:52→23:20)
[2018-05-15] MEDS: [UNRECOGNIZED DRUG - OTHER] IV SCH ×4 (00:52→23:20)
[2018-05-15] MEDS: INFUVITE ADULT IV SCH ×4 (00:52→23:20)
[2018-05-15] MEDS: PRECOSE PO SCH ×3 (08:49→17:10)
[2018-05-15] MEDS: TRADJENTA PO SCH (08:50)
[2018-05-15] MEDS: TRIGLIDE PO SCH (08:50)
[2018-05-15] MEDS: ASPIRIN EC PO SCH (08:50)
[2018-05-15] MEDS: ZESTRIL PO SCH ×2 (08:50→20:10)
[2018-05-15] MEDS: ZANTAC PO SCH ×2 (08:50→20:10)
[2018-05-15] MEDS ORDERED: CHLORTHALIDONE PO SCH (09:00)
[2018-05-15] MEDS ORDERED: ATENOLOL PO SCH (09:00)
[2018-05-15] MEDS: NORVASC PO SCH (20:10)
[2018-05-15] MEDS: PRAVACHOL PO SCH (20:10)
[2018-05-15] MEDS: TENORMIN PO SCH (21:01)
[2018-05-16] MEDS: ZESTRIL PO SCH (08:00)
[2018-05-16] MEDS: TRADJENTA PO SCH (08:00)
[2018-05-16] MEDS: ASPIRIN EC PO SCH (08:00)
[2018-05-16] MEDS: ZANTAC PO SCH (08:00)
[2018-05-16] MEDS: PRECOSE PO SCH ×3 (08:01→16:52)
[2018-05-16] MEDS: TRIGLIDE PO SCH (08:01)
[2018-05-16] MEDS: [UNRECOGNIZED DRUG - OTHER] IV SCH (08:50)
[2018-05-16] MEDS: POTASSIUM CHLORIDE IV SCH (08:50)
[2018-05-16] MEDS: INFUVITE ADULT IV SCH (08:50)
[2018-05-16] MEDS: TENORMIN PO SCH (08:50)
[2018-05-16 14:59] VITALS: BP 123/75; TEMP 97.7
--- NOTE | 2018-05-22 07:59 | HP ---
DATE OF SERVICE: 05/14/18 CHIEF COMPLAINT: Polyuria and polydipsia. SOURCE OF HISTORY: The patient and ER triage plus M.D. HISTORY OF PRESENT ILLNESS: 42-year-old male was diagnosed with Type 2 diabetes mellitus last February 2018. The patient was medicated with Metformin 500 mg twice a day. The patient had noted more frequency of urination and excessive thirst within the last five days prior to presentation to the emergency room. The patient did walk into the emergency room. The patient had not had any other complaints such as chest pain, abdominal pain or burning on urination. Workup in the ER showed a blood sugar of 530.6 mg%. Arterial blood gases unremarkable except for slightly lower pH 7.349. BUN was elevated 26.7, creatinine 1.40. EGFR 55. Urine specific gravity 1.010, 2+ sugar, the rest negative. The patient was admitted for further diagnosis and control of the diabetes. It appears that this patient had never been educated with regards to his diabetes. PAST PERSONAL HISTORY: The patient had diagnosis of GERD and did have an endoscopy July 2016 as well as colonoscopy. History of gouty arthritis. History of sleep apnea on CPAP, hypertension and diabetes mellitus. The patient had a CT scan of the abdomen 08/30 and was diagnosed to have a fatty liver. He was admitted to the hospital for diagnosis of hypertension. His A1C then was 5.7 and weighed 244 lbs, BMI 39.4. The patient had surgery for right carpal tunnel syndrome. He had outpatient labs 12/27/17 and his blood sugar was 154, A1C 6.[address] Day. His AST and ALT at that time was elevated 48 and 82 respectively. Triglyceride 269, HDL 26. PSA 0.4. He also had lab done 02/17/18 and was the last provider who saw him before this admission. Lab requested was uric acid measuring 6.79, normal range 3.5 to 8.5. MEDICATIONS: The patient's medication prior to this admission consisted of: 1. Aspirin 81 mg daily 2. Ibuprofen 200 mg daily as needed 3. Metformin 500 mg twice a day 4. Atenolol/Chlorthalidone one tablet daily 5. Pravastatin Sodium 40 mg at bedtime 6. Amlodipine 10 mg daily 7. Ranitadine 150 mg twice a day 8. Allopurinol 100 mg tablet daily 9. Triglide 160 mg daily 10. Zestril 40 mg twice a day ALLERGIES: PENICILLIN SOCIAL HISTORY: The patient is and resides with his . He does smoke one pack of cigarettes a day every day for years. He drinks alcoholic beverages occasionally. He works for a company "[employer]" He does his work in [place] but the company is in [place], [place], somewhere near [place]. REVIEW OF SYSTEMS: CONSTITUTIONAL: No fever, no chills. No fatigue. 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 VISUAL: Denies any double vision or loss of vision including blurred vision. AUDITORY: Hearing is good and the rest are negative. RESPIRATORY: The patient has sleep apnea and uses CPAP at home. He does have cough from smoking but no history of hemoptysis. CARDIOVASCULAR: Denies any chest pain or chest tightness, diaphoresis or weakness. GASTROINTESTINAL: No nausea, anorexia but has polydipsia. Also had endoscopy. MUSCULOSKELETAL: Some pain taking Ibuprofen. INTEGUMENT: Denies any rash, pruritus or ecchymosis. : The patient has frequency of urination but no pain, no hesitancy. ENDOCRINE: The patient has diabetes mellitus with polydipsia and polyuria. HEMATOLOGIC: Negative. PSYCHIATRIC: Affect is normal. PHYSICAL EXAMINATION: GENERAL: We have a 42-year-old male admitted to the hospital because of polyuria and polydipsia with a blood sugar of 530. He had been diagnosed with diabetes recently and was placed on Metformin 500 mg twice a day. The patient did admit to not paying attention very much to his diet. VITAL SIGNS: Height 5'6", weight 271 lbs, BMI 43.7. Temperature on admission 98.1 tympanic, pulse 85, blood pressure 138/78, respiratory rate 20, oxygen saturation 95 on room air. HEAD: Unremarkable. Scalp - no active dermatitis. Face is symmetrical and equal with no facial weakness, no redness. He denies any tenderness to palpation and/ or pressure on the frontal or maxillary sinus areas. EYES: Pupils equal/reactive to light about 3 mm in size. Palpebral conjunctivae not pale. Sclerae not icteric. MOUTH: Unremarkable. THROAT: No inflammation or exudate. NECK: No masses. No bruit. No adenopathies. CHEST: Symmetrical and equal with good expansion. LUNGS: Breath sounds are heard on both sides. No rales or wheezing. HEART: Audible and regular with good tones. No murmur. ABDOMEN: Markedly protuberant, soft with no significant tenderness, no masses palpable. Bowel sounds are active. No bruit. EXTERNAL GENITALIA: Not examined. RECTAL: Not done. This patient had a colonoscopy July 2016. LOWER EXTREMITIES: Essentially symmetrical and equal. No significant edema. The tibial pulses are present but the posterior tibials have decreased volume. UPPER EXTREMITIES: Symmetrical and equal. ASSESSMENT: 1. TYPE 2 DIABETES MELLITUS, UNCONTROLLED 530 MG BLOOD SUGAR 2. MARKEDLY ELEVATED BMI 43.7. 3. HYPERTENSION, CONTROLLED. 4. HISTORY OF GOUTY ARTHRITIS. 5. HISTORY OF GERD, ENDOSCOPY JULY 2016. 6. HISTORY OF SLEEP APNEA ON CPAP. 7. HISTORY OF CARPAL TUNNEL SYNDROME, RIGHT SIDE OPERATED. 8. HISTORY OF FATTY LIVER PER SCAN 01/21/13. TIME SPENT: GREATER THAN 65 MINUTES MTDD
--- NOTE | 2018-05-22 14:51 | DS ---
DATE OF SERVICE: 05/16/18 PATIENT IDENTIFICATION: 42-year-old male who was admitted from the emergency room because of hyperglycemia. The patient had been experiencing polyuria and polydipsia since about 5 or 6 days prior to presentation. His blood sugar in the emergency room was 530. No other tests were done except the blood sugar as well as the chemistries but no A1C. The patient was seen in the emergency room at 10:52 a.m. He was seen by Ernie at 11. The patient's physical examination was unremarkable except for the markedly elevated BMI 43.7. Heart normal sinus rhythm. Lungs clear. Abdomen markedly protuberant. Pedal pulses present but posterior tibials were diminished in volume. A1C was ordered and was at 9.73. Insulin level was 53.6. The two hours were slightly abnormal but no clinical significance. ABG showed pH 7.349 and the rest were normal. The WBC was slightly elevated on admission 10,620 and the rest of the repeat CBC showed normal WBC, slightly lower hemoglobin/hematocrit just below 14. It was 14.7 on admission. Fasting blood sugar the next day was down to 343.9 and the fasting insulin was down to 26.2, plasma C-peptide level 5.8, upper normal 4.4. The ALT is now normal. Triglyceride was 1,837.6 fasting. The cholesterol was 255, good cholesterol 28.8, ratio 8.9. The results were discussed with the patient in the presence of his . Physical findings are essentially the same. The patient on 05/16/18 was eager to go home. The patient is alert, oriented times four, not dyspneic or tachypneic and denies any chest pain, abdominal pain. The frequency of urination is less and he is getting less thirsty. His CBC is slightly lower hemoglobin/hematocrit 13.3 and 13.5 yesterday. WBC is normal. Hematocrit is 38.9 , 39.6 yesterday and 42 on admission. Electrolytes are close to normal and GFR now has increased to 97 from 55 on admission. His fasting blood sugar is 305.7. The rest of the chemistries normal. Neck has no masses and no bruit. Lungs are clear to auscultation both sides. Heart is normal sinus rhythm without any murmur. Abdomen nontender. Lower extremities no tenderness in the calf muscles. I did inform him again in the presence of his that he should follow dietary instruction by the high school industrial arts teacher and the nurse was with me during the course of the explanation, Linh Valdes R.N. I did advise him further that he should begin exercise such as walking short distances initially or to the point that he could tolerate and increase it every weak. He should avoid sugar, more so with high fructose corn sugar food or drinks. He should eat less amount of organic fat. I asked him what he wanted to follow since the provider given was Reno Manley and Timothy Bailey. The patient doesn't know Reno Manley. The last provider to see him was Tima Goss. He elected to follow with Tima so the patient was advised to call the office where Tima is to make an appointment to see him the next week. Medications then on discharge for diabetes were: 1. Metformin 1000 mg twice a day 2. Tradjenta 5 mg daily 3. Acarbose 25 mg with meals 4. He is to resume his other medications consisting of Atenolol, Aspirin, Pravastatin, Amlodipine, Ranitidine, Allopurinol, Fenofibrate and Zestril. 5. Pravastatin was prescribed by Dr. Day on record as well as the Tenoretic 50. The patient had 500 mg Metformin so he was instructed to take two twice a day instead of one. Fenofibrate was prescribed by Tima Goss. Amlodipine and Allopurinol. FINAL DIAGNOSES: 1. TYPE 2 DIABETES MELLITUS, UNCONTROLLED 2. INSULIN RESISTANT SYNDROME 3. MARKEDLY ELEVATED BMI 43.7 4. HYPERTENSION CONTROLLED 5. SLEEP APNEA ON CPAP 6. SEVERE HYPERTRIGLYCERIDEMIA 7. LOW HDL 8. CHRONIC TOBACCO USE AND ABUSE PERSISTENT - THIS PATIENT WAS ADVISED TO STOP IT PROGNOSIS: Guarded. TIME SPENT: GREATER THAN 30 MINUTES MTDD
--- NOTE | 2018-05-23 14:14 | PN ---
DATE OF VISIT: 05/15/18 The patient is alert, oriented time four, not dyspneic, nor tachypneic without any chest pain. The polyuria seems to have decreased, as well as the polydipsia. Accucheck today is 361. No coverage is given. Sugar could be brought down close to normal Insulin coverage, but the intention is to know what the patient has. Indeed, the patient's fasting insulin was 53.6, upper normal 24.9. A1C is now 9.73, much higher than a couple months ago. Plasma C peptide still has no results. The ALT is slightly elevated and this patient had a previous elevation of AST and ALT. This may be the effect of the Pravastatin that was prescribed. I did explain to the patient in the presence of his on the results of the tests that we have at this time. It appears that he has more insulin in his system and in spite of that his blood sugar is still high. This can be improved by exercise slowly and increasingly to adjust to his physical condition and also weight loss. Plasma C Peptide level is 5.8, normal 1.4 to 4.4. The triglyceride is 1,837. I explained to him that that may cause a condition called pancreatitis. At this point in time his chances of having pancreatitis is much higher than the population whose triglycerides are normal or slightly above normal. Triglycerides also rises remarkably after eating. It is considerable that his triglycerides would be beyond 2000. I did advise him to eat less amount of fatty foods and foods without high fructose sugar and also drinks that has high fructose sugar. High fructose sugar is almost always in most of the sodas and a good number of foods that are being prepared already. Fasting blood sugar today was 343. I told him that it had improved. Elevated blood sugar and A1C increases the chances of complications resulting from diabetes and more so if the insulin is also above normal levels. I also reviewed the lipid panel with him. His cholesterol is still high at 255 in spite of the Pravachol and his HDL is very low. As a consequence, the ratio between cholesterol and HDL is elevated at 8.9. This patient had given instructions by the recycling crew supervisor with regards to his diet. He does seem to understand the nature of his problems. I do believe that the blood sugar would probably return close to normal if not normal once he has lost weight and that may also help with sleep apnea problem, as well as hypertension. My observation seems to be that his is somewhat dismissive of all of the explanations. MARLIND
== END 2018-05-16 18:32 | disposition home or self-care (01) | DRG 642 ==
LOC: ED 10:50 → MEDSURG A 13:30
PROVIDERS: ADMIT General Practice; ATTEND General Practice
DX: E78.1 Pure hyperglyceridemia (principal); Z68.41 Body mass index [BMI] 40.0-44.9, adult; E88.81 Metabolic syndrome and other insulin resistance; I10 Essential (primary) hypertension; G47.30 Sleep apnea, unspecified; R39.15 Urgency of urination; Z72.0 Tobacco use
CPT/HCPCS: 36415; 80053; 80061; 81001; 82803; 82962; 83036; 83519; 83525; 84681; 85025; 87081; 94640; 96372; 97802; 99223; 99232; 99239; 99284

== ENCOUNTER 2018-05-22 16:42 | Outpatient (CLI) | END 2018-05-22 16:43 | disposition home or self-care (01) | LOC: LAB 16:42 → FCC-LAB 16:43 | PROVIDERS: ATTEND Family Medicine | DX: E11.9 Type 2 diabetes mellitus without complications (principal) ==

== ENCOUNTER 2018-08-26 07:59 | Outpatient (CLI) | END 2018-08-26 08:00 | disposition home or self-care (01) | LOC: RHC-LAB 07:59 → FCC-LAB 08:00 | PROVIDERS: ATTEND Family Medicine | DX: E11.9 Type 2 diabetes mellitus without complications (principal); E78.5 Hyperlipidemia, unspecified | CPT/HCPCS: 36415; 80053; 80061; 83037; 85007; 85025 ==

== ENCOUNTER 2018-09-04 11:55 | Outpatient (CLI) | END 2018-09-04 11:56 | disposition home or self-care (01) | LOC: RHC-LAB 11:55 → FCC-LAB 11:56 | PROVIDERS: ATTEND Family Medicine | DX: B35.1 Tinea unguium (principal) | CPT/HCPCS: 87101 ==

== ENCOUNTER 2022-12-06 05:55 | Inpatient (IN) ==
[2022-12-06] MEDS ORDERED: SODIUM CHLORIDE 1,000 ML IV STA (06:30)
[2022-12-06] MEDS ORDERED: MORPHINE 4 MG/ML SYRINGE IVP ONE (06:30)
[2022-12-06] MEDS ORDERED: ZOFRAN 4 MG/2 ML IVP ONE (06:30)
--- NOTE | 2022-12-06 06:39 | ED.PDOC ---
General <TOM CRUZ DO - Last Filed: 12/08/22 07:51> ED Provider: Dr. TOM CRUZ DO Chief Complaint: Constipation Stated Complaint: Patient is a 47 yo M here for abdominal pain and suspected cosntiaption Patient afebrile with constant tachycardia rate 114 and stable BP Patient reports " I have not pooped well for a month and am filling up." Patient has portuberent abdomen that is indurated Patient did follow with Dr. Velasquez at one time but fired for tardiness He is awaiting a new appointment Ufortunately patient uses Vape tobacco, has poor diet, does not exercise and is morbidly obese He denies drugs or alcohol Patient denies falls or injuries He denies sick contacts Patient reports he has not had a normal BM for 3+ weeks No bleeding No recent surgeries Patient amenable to labs and imaging He has stopped using his insulin, with his bloating and abdominal pain he does not want to give himself sub Q insulin in his abdomen. Time Seen by Provider: 12/06/22 06:23 Information Source: Patient Primary Care Provider: MICHAEL VELASQUEZ MD Sepsis Protocol: For patient's 13 years and over: Temp is 96.8 and below OR 101 and greater Pulse >90 BPM Resp >20/minute Acutely Altered Mental Status Are patient's symptoms suggestive of a new infection, such as: -Pneumonia -Skin, Soft Tissue -Endocarditis -UTI -Bone, Joint Infection -Implantable Device -Acute Abdominal Infection -Wound Infection -Meningitis -Blood Stream Catheter Infection -Unknown <ALINA JENNINGS MD - Last Filed: 12/07/22 07:24> Exam Limitations: No limitations Nursing and Triage Documentation Reviewed and Agree: Yes Does patient meet sepsis criteria?: No System Inflammatory Response Syndrome: Not Applicable Review of Systems <TOM CRUZ DO - Last Filed: 12/08/22 07:51> Review Of Systems Constitutional: Denies Chills or Fever Eyes: Denies Blurred vision, Vision change or Drainage Ears, Nose, Mouth, Throat: Denies Ear pain, Nose pain or Nose discharge Respiratory: Denies Cough, Shortness of Breath or Stridor Cardiac: Denies Chest pain or Palpitations GI: Reports Abdomen distended, Abdominal pain, Constipated, Nausea, Poor appetite and Poor fluid intake; Denies Diarrhea, Difficulty swallowing or Vomiting : Denies Dysuria, Discharge or Frequency Musculoskeletal: Denies Back pain or Joint pain Skin: Denies Bruising or Dryness Neurological: Denies Anxiety or Depressed Endocrine: Denies Excessive sweating or Flushing Hematologic/Lymphatic: Reports No symptoms All Other Systems: Reviewed and Negative [facility] <TOM CRUZ DO - Last Filed: 12/08/22 07:51> Medical History Acute carpal tunnel syndrome of right wrist G56.01 - Carpal tunnel syndrome, right upper limb (ICD-10) BMI 34.0-34.9,adult Z68.34 - Body mass index [BMI] 34.0-34.9, adult (ICD-10) BMI 39.0-39.9,adult Z68.39 - Body mass index [BMI] 39.0-39.9, adult (ICD-10) Diabetes type 2, controlled E11.9 - Type 2 diabetes mellitus without complications (ICD-10) Elevated cholesterol E78.00 - Pure hypercholesterolemia, unspecified (ICD-10) Hypertension I10 - Essential (primary) hypertension (ICD-10) Leukocytosis D72.829 - Elevated white blood cell count, unspecified (ICD-10) Microalbuminuria R80.9 - Proteinuria, unspecified (ICD-10) MRSA (methicillin resistant staph aureus) culture positive Z22.322 - Carrier or suspected carrier of Methicillin resistant Staphylococcus aureus (ICD-10) Family History Mother Diabetes Cardiac disease COPD (chronic obstructive pulmonary disease) Social History Smoking and tobacco status: Current every day smoker Tobacco type: e-cigarettes Tobacco: How many years used: 20 Second hand smoke exposure: Yes Smoking risk assessment performed: No Alcohol intake: current Alcohol intake frequency: holidays/special occasions only Counseling given: No Counseling provided: none Substance use type: does not use Counseling given: No Counseling provided: none Ruth/methodist: OTHER Special ruth needs: No Agree to transfusion: Yes Adopted: No Caregiver/support person: No Foster care: No Household members: spouse, family and children Housing: house Marital status: M Daycare: no daycare Number of children: 5 Number of grandchildren: 0 Highest education level completed: high school graduate service: No halfway: No Current occupational status: unemployed Current occupational exposures/hazards: No Pets and animals: Yes (dogs) History of recent travel: No Sexually active: Yes Do you think of yourself as: straight/heterosexual Current gender identity: male Seatbelt use: always Drives intoxicated or rides with intoxicated stage driver: No Physical Exam <TOM CRUZ DO - Last Filed: 12/08/22 07:51> Physical Exam Appearance: Reports Well-appearing, Well-nourished, Obese and Other (Disheveled ) Ill-appearing: Moderate Pain Distress: Moderate Eyes: Reports ORQUIDEA and EOMI ENT: Denies Ears normal or Nose normal Neck: Supple Respiratory: Reports Airway patent and Breath sounds clear; Denies Crackles or Rhonchi Cardiovascular: Reports Tachycardia; Denies No murmur or Irregular rhythm GI/: Reports Other (portuburent abdomen, no peritonistis, there is guarding, lower abdomen induration with mild erythema and scattered excoriations) Musculoskeletal: Reports Normal strength and ROM intact Skin: Reports Warm, Dry and Other (le exoriations, abdominal erythema without abrasions or lacerations, skin induration) Neurological: Reports Sensation intact and Motor intact Psychiatric: Reports Affect appropriate and Mood appropriate <ALINA JENNINGS MD - Last Filed: 12/07/22 07:24> EKG Interpretation EKG Interpretation By: ED Physician Time of EKG #1: 06:46 Rate: Tachy (112) Rhythm: Sinus Ectopy: None Union: Right (borderline) ST Segment: Normal Interpretation: LAE; incomplete LBBB; T-wave flattening in III, aVL, V5, inversion in V6 EKG Comparison: Other (none available for comparison) <ALINA JENNINGS MD - Last Filed: 12/07/22 07:24> Critical Care Note Total Critical Care Time (mins): 0 Course <TOM CRUZ DO - Last Filed: 12/08/22 07:51> Course 12/08/22 06:00 12/08/22 06:00 Orders, Labs, Meds: Lab Review 12/06/22 12/06/22 06:46 12:35 WBC 8.83 RBC 4.79 Hgb 13.2 L Hct 42.6 MCV 88.9 MCH 27.6 MCHC 31.0 L RDW Coeff of [place] 14.6 Plt Count 318 Immature Gran % (Auto) 0.2 Neut % (Auto) 64.1 Lymph % (Auto) 25.4 [place] % (Auto) 7.2 Eos % (Auto) 2.4 Baso % (Auto) 0.7 Neut # (Auto) 5.7 Lymph # (Auto) 2.2 [place] # (Auto) 0.6 Eos # (Auto) 0.2 Baso # (Auto) 0.1 Immature Gran # (Auto) 0.0 Sodium 141.0 Potassium 4.25 Chloride 108.8 H Carbon Dioxide 26.2 Anion Gap 10.25 BUN 14.1 Creatinine 0.88 Estimated GFR (MDRD) 92.00 BUN/Creatinine Ratio 16.02 Glucose 143.9 H Lactic Acid 1.17 Calcium 9.27 Total Bilirubin 0.45 AST 27.6 ALT 25.6 Alkaline Phosphatase 74.3 Troponin I 0.024 C-Reactive Prot, Quant 8 NT-Pro-B Natriuret Pep 3260 H Total Protein 7.19 Albumin 4.08 Globulin 3.11 Albumin/Globulin Ratio 1.31 Lipase 78.4 Urine Color Yellow Urine Clarity Clear Urine pH 5.0 Ur Specific [place] 1.020 Urine Protein 2+ H Urine Glucose (UA) Negative Urine Ketones Negative Urine Blood Negative Urine Nitrite Negative Urine Bilirubin Negative Urine Urobilinogen 0.2 Ur Leukocyte Esterase Negative Urine Microscopic RBC 0-2 Urine Microscopic WBC 0-2 Ur Squamous Epith Cells 0-2 Acetone, Qual None Orders Category Date Time Status EKG-(ED ONLY) Stat CARDIO 12/06/22 06:30 Completed NPO REMINDER: IMAGING ONCE CARE 12/06/22 06:31 Completed ACETONE, QUALITATIVE Stat LAB 12/06/22 06:46 Completed BLOOD CULTURE Stat LAB 12/06/22 07:01 Results CBC W/ AUTO DIFF Stat LAB 12/06/22 06:46 Completed COMPREHENSIVE METABOLIC PANEL Stat LAB 12/06/22 06:46 Completed LACTIC ACID Stat LAB 12/06/22 06:46 Completed LIPASE Stat LAB 12/06/22 06:46 Completed PROBNP ED [NT-PROBNP(ED)] Stat LAB 12/06/22 06:46 Completed TROPONIN I Stat LAB 12/06/22 06:46 Completed URINALYSIS C & S IF INDICATED Stat LAB 12/06/22 12:35 Completed Furosemide [Lasix] Meds 12/06/22 10:25 Discontinued 20 mg IVP ONCE ONE Morphine Sulfate [Morphine 4 mg/ml Syringe] [facility] 12/06/22 06:30 Discontinued 4 mg IVP ONCE ONE Ondansetron HCl/Pf [Zofran 4 mg/2 ml] [facility] 12/06/22 06:30 Discontinued 4 mg IVP ONCE ONE Sodium Chloride 0.9% [Sodium Chloride] 1,[address] [facility] 12/06/22 06:[address] ABDOMEN/PELVIS W CONTRAST Stat [facility] 12/06/22 06:[address] CHEST PE PROTOCOL Stat [facility] 12/06/22 06:30 Completed Medications Generic Name Dose Route Start Last Admin Trade Name Freq PRN Reason Stop Dose Admin Acetaminophen 650 mg 12/06/22 13:56 Acetaminophen 325 Mg Tablet PO Q4H PRN Mild Pain Aspirin 81 mg 12/08/22 08:30 Aspirin 81 Mg Tab.Chew PO DAILYWM SHAVONNE Enoxaparin Sodium 40 mg 12/07/22 09:00 12/07/22 08:23 Enoxaparin Sodium 40 Mg/0.4 Ml Syr SUBCUT 40 mg DAILY SHAVONNE Administration Furosemide 40 mg 12/07/22 13:00 12/08/22 04:29 Furosemide Inj 40 Mg/4 Ml Vial IVP 40 mg Q8HR SHAVONNE Administration Hydralazine HCl 10 mg 12/06/22 14:01 Hydralazine Hcl 20 Mg/Ml Sdv IVP Q6H PRN Hypertension Insulin Detemir 25 unit 12/06/22 15:30 12/07/22 08:24 Insulin Detemir 100 Units/Ml SUBCUT 25 unit DAILY SHAVONNE Administration Insulin Human Regular 0 unit 12/06/22 14:00 12/07/22 20:42 Insulin Regular, Human 100 Unit/Ml (3ml) Vial SUBCUT 4 unit PRN PRN Administration Hyperglycemia Protocol Lisinopril 40 mg 12/06/22 15:30 12/07/22 08:23 Lisinopril 40 Mg Tablet PO 40 mg DAILY SHAVONNE Administration Metoprolol Succinate 50 mg 12/07/22 13:00 12/07/22 13:25 Metoprolol Succinate 50 Mg Tab.Er.24h PO 50 mg DAILY SHAVONNE Administration Non-Formulary Medication 0.5 mg 12/10/22 09:00 Semaglutide [Ozempic] SUBCUT WEEKLY [facility] Rosuvastatin Calcium 20 mg 12/06/22 21:00 12/07/22 20:42 Rosuvastatin Calcium 10 Mg Tablet PO 20 mg BEDTIME SHAVONNE Administration Discontinued Medications Generic Name Dose Route Start Last Admin Trade Name Adrian PRN Reason Stop Dose Admin Furosemide 20 mg 12/06/22 10:25 12/06/22 10:36 Furosemide Inj 20 Mg/2 Ml Vial IVP 12/06/22 10:26 20 mg ONCE ONE Administration Furosemide 40 mg 12/06/22 17:00 12/07/22 05:49 Furosemide Inj 40 Mg/4 Ml Vial IVP 40 mg BIDAC SHAVONNE Administration Sodium Chloride 1,000 mls @ 500 mls/hr 12/06/22 06:30 12/06/22 06:52 Sodium Chloride IV 12/06/22 08:29 500 mls/hr BOLUS STA Administration Morphine Sulfate 4 mg 12/06/22 06:30 12/06/22 06:53 Morphine Sulfate 4 Mg/Ml Syringe IVP 12/06/22 06:31 4 mg ONCE ONE Administration Ondansetron HCl 4 mg 12/06/22 06:30 12/06/22 06:53 Ondansetron Hcl/Pf 4 Mg/2 Ml Sdv IVP 12/06/22 06:31 4 mg ONCE ONE Administration Vital Signs: Temp Pulse Resp BP Pulse Ox 12/06/22 05:58 97.9 F 116 H 22 H 164/116 H 98 Patient care signed out to Dr. Poli CARDONA format Assumed care of patient at 0700 on shift change after check-out by Dr Cruz. Labs posted, no clinically significant abnormal values noted. CT Abd/Pelvis reported 'Generalized edematous state with pleural effusions, pericardial effusion, ascites, mesenteric/retroperitoneal edema and subcutaneous edema. Anterior lower abdominal skin thickening could indicate cellulitis. Hepatomegaly with fatty infiltration. Question early cirrhosis. Diverticulosis. Left renal cyst. Atherosclerosis. Nonspecific right iliac lymphadenopathy with additional prominent retroperitoneal, iliac, pelvic and inguinal lymph nodes'. CTA Chest reported 'No pulmonary embolus. Third spacing with small to moderate right and trace left pleural effusions, small to moderate pericardial effusion, small volume ascites, and body wall edema. Cardiomegaly. Dilated main pulmonary artery suggesting pulmonary arterial hypertension. Coronary calcifications'. The BNP posted, consistent with CHF (3260). I feel this is most consistent with new-onset CHF, and he would benefit from an echo and stress test. I spoke with the Hospitalist [employer]CHITECT, Patrice Aguirre, who accepted him for admission. His BP normalized after the Lasix began pulling off fluid. He was in stable condition when transported from the ED to the medical floor. <ALINA JENNINGS MD - Last Filed: 12/07/22 07:24> Course Orders, Labs, Meds: Lab Review 12/06/22 12/06/22 06:46 12:35 WBC 8.83 RBC 4.79 Hgb 13.2 L Hct 42.6 MCV 88.9 MCH 27.6 MCHC 31.0 L RDW Coeff of [place] 14.6 Plt Count 318 Immature Gran % (Auto) 0.2 Neut % (Auto) 64.1 Lymph % (Auto) 25.4 [place] % (Auto) 7.2 Eos % (Auto) 2.4 Baso % (Auto) 0.7 Neut # (Auto) 5.7 Lymph # (Auto) 2.2 [place] # (Auto) 0.6 Eos # (Auto) 0.2 Baso # (Auto) 0.1 Immature Gran # (Auto) 0.0 Sodium 141.0 Potassium 4.25 Chloride 108.8 H Carbon Dioxide 26.2 Anion Gap 10.25 BUN 14.1 Creatinine 0.88 Estimated GFR (MDRD) 92.00 BUN/Creatinine Ratio 16.02 Glucose 143.9 H Lactic Acid 1.17 Calcium 9.27 Total Bilirubin 0.45 AST 27.6 ALT 25.6 Alkaline Phosphatase 74.3 Troponin I 0.024 C-Reactive Prot, Quant 8 NT-Pro-B Natriuret Pep 3260 H Total Protein 7.19 Albumin 4.08 Globulin 3.11 Albumin/Globulin Ratio 1.31 Lipase 78.4 Urine Color Yellow Urine Clarity Clear Urine pH 5.0 Ur Specific [place] 1.020 Urine Protein 2+ H Urine Glucose (UA) Negative Urine Ketones Negative Urine Blood Negative Urine Nitrite Negative Urine Bilirubin Negative Urine Urobilinogen 0.2 Ur Leukocyte Esterase Negative Urine Microscopic RBC 0-2 Urine Microscopic WBC 0-2 Ur Squamous Epith Cells 0-2 Acetone, Qual None Orders Category Date Time Status EKG-(ED ONLY) Stat CARDIO 12/06/22 06:30 Completed NPO REMINDER: IMAGING ONCE CARE 12/06/22 06:31 Completed ACETONE, QUALITATIVE Stat LAB 12/06/22 06:46 Completed BLOOD CULTURE Stat LAB 12/06/22 07:01 Results CBC W/ AUTO DIFF Stat LAB 12/06/22 06:46 Completed COMPREHENSIVE METABOLIC PANEL Stat LAB 12/06/22 06:46 Completed LACTIC ACID Stat LAB 12/06/22 06:46 Completed LIPASE Stat LAB 12/06/22 06:46 Completed PROBNP ED [NT-PROBNP(ED)] Stat LAB 12/06/22 06:46 Completed TROPONIN I Stat LAB 12/06/22 06:46 Completed URINALYSIS C & S IF INDICATED Stat LAB 12/06/22 12:35 Completed Furosemide [Lasix] Meds 12/06/22 10:25 Discontinued 20 mg IVP ONCE ONE Morphine Sulfate [Morphine 4 mg/ml Syringe] Meds 12/06/22 06:30 Discontinued 4 mg IVP ONCE ONE Ondansetron HCl/Pf [Zofran 4 mg/2 ml] Meds 12/06/22 06:30 Discontinued 4 mg IVP ONCE ONE Sodium Chloride 0.9% [Sodium Chloride] 1,000 ml Meds 12/06/22 06:[address] ABDOMEN/PELVIS W CONTRAST Stat RADS 12/06/22 06:[address] CHEST PE PROTOCOL Stat [facility]ADS 12/06/22 06:30 Completed Medications Generic Name Dose Route Start Last Admin Trade Name Freq PRN Reason Stop Dose Admin Acetaminophen 650 mg 12/06/22 13:56 Acetaminophen 325 Mg Tablet PO Q4H PRN Mild Pain Aspirin 81 mg 12/08/22 08:30 Aspirin 81 Mg Tab.Chew PO DAILYWM SHAVONNE Enoxaparin Sodium 40 mg 12/07/22 09:00 12/07/22 08:23 Enoxaparin Sodium 40 Mg/0.4 Ml Syr SUBCUT 40 mg DAILY SHAVONNE Administration Furosemide 40 mg 12/07/22 13:00 12/08/22 04:29 Furosemide Inj 40 Mg/4 Ml Vial IVP 40 mg Q8HR SHAVONNE Administration Hydralazine HCl 10 mg 12/06/22 14:01 Hydralazine Hcl 20 Mg/Ml Sdv IVP Q6H PRN Hypertension Insulin Detemir 25 unit 12/06/22 15:30 12/07/22 08:24 Insulin Detemir 100 Units/Ml SUBCUT 25 unit DAILY SHAVONNE Administration Insulin Human Regular 0 unit 12/06/22 14:00 12/07/22 20:42 Insulin Regular, Human 100 Unit/Ml (3ml) Vial SUBCUT 4 unit PRN PRN Administration Hyperglycemia Protocol Lisinopril 40 mg 12/06/22 15:30 12/07/22 08:23 Lisinopril 40 Mg Tablet PO 40 mg DAILY SHAVONNE Administration Metoprolol Succinate 50 mg 12/07/22 13:00 12/07/22 13:25 Metoprolol Succinate 50 Mg Tab.Er.24h PO 50 mg DAILY SHAVONNE Administration Non-Formulary Medication 0.5 mg 12/10/22 09:00 Semaglutide [Ozempic] SUBCUT WEEKLY SHAVONNE Rosuvastatin Calcium 20 mg 12/06/22 21:00 12/07/22 20:42 Rosuvastatin Calcium 10 Mg Tablet PO 20 mg BEDTIME SHAVONNE Administration Discontinued Medications Generic Name Dose Route Start Last Admin Trade Name Freq PRN Reason Stop Dose Admin Furosemide 20 mg 12/06/22 10:25 12/06/22 10:36 Furosemide Inj 20 Mg/2 Ml Vial IVP 12/06/22 10:26 20 mg ONCE ONE Administration Furosemide 40 mg 12/06/22 17:00 12/07/22 05:49 Furosemide Inj 40 Mg/4 Ml Vial IVP 40 mg BIDAC SHAVONNE Administration Sodium Chloride 1,000 mls @ 500 mls/hr 12/06/22 06:30 12/06/22 06:52 Sodium Chloride IV 12/06/22 08:29 500 mls/hr BOLUS STA Administration Morphine Sulfate 4 mg 12/06/22 06:30 12/06/22 06:53 Morphine Sulfate 4 Mg/Ml Syringe IVP 12/06/22 06:31 4 mg ONCE ONE Administration Ondansetron HCl 4 mg 12/06/22 06:30 12/06/22 06:53 Ondansetron Hcl/Pf 4 Mg/2 Ml Sdv IVP 12/06/22 06:31 4 mg ONCE ONE Administration Vital Signs: Temp Pulse Resp BP Pulse Ox 12/06/22 05:58 97.9 F 116 H 22 H 164/116 H 98 Patient care signed out to Dr. Poli CARDONA Assumed care of patient at 0700 on shift change after check-out by Dr Cruz. Labs posted, no clinically significant abnormal values noted. CT Abd/Pelvis reported 'Generalized edematous state with pleural effusions, pericardial effusion, ascites, mesenteric/retroperitoneal edema and subcutaneous edema. Anterior lower abdominal skin thickening could indicate cellulitis. Hepat omegaly with fatty infiltration. Question early cirrhosis. Diverticulosis. Left renal cyst. Atherosclerosis. Nonspecific right iliac lymphadenopathy with additional prominent retroperitoneal, iliac, pelvic and inguinal lymph nodes'. CTA Chest reported 'No pulmonary embolus. Third spacing with small to moderate right and trace left pleural effusions, small to moderate pericardial effusion, small volume ascites, and body wall edema. Cardiomegaly. Dilated main pulmona ry artery suggesting pulmonary arterial hypertension. Coronary calcifications'. The BNP posted, consistent with CHF (3260). I feel this is most consistent with new-onset CHF, and he would benefit from an echo and stress test. I spoke with the Hospitalist [employer]CH[employer], Patrice Aguirre, who accepted him for admission. His BP normalized after the Lasix began pulling off fluid. He was in stable condition when transported from the ED to the medical floor. Discharge Plan Discharge Patient Disposition: ADMITTED INPATIENT Discharge Problem: Congestive heart failure, Mesenteric lymphadenopathy, Acute pericardial eff usion, Pleural effusion, New onset of congestive heart failure Ascites Qualifiers: Ascites type: other type Qualified Code(s): R18.8 - Other ascites Did you review [place] BENCH MANAGER for ALL controlled substances?: Not Applicable ED Provider: ALINA JENNINGS Condition: Good <TOM CRUZ DO - Last Filed: 12/08/22 07:51> Physician Progress Note: []
[2022-12-06 06:51] LABS: BASOPHILS # (AUTO) 0.1 K/uL (0-0.2); BASOPHILS % (AUTO) 0.7 % (0.0-3.0); EOSINOPHILS # (AUTO) 0.2 K/ul (0.0-0.7); EOSINOPHILS % (AUTO) 2.4 % (0.0-7.0); HEMATOCRIT 42.6 % (42.0-52.0); HEMOGLOBIN 13.2 g/dl (14.0-18.0); IMMATURE GRANULOCYTE % (AUTO) 0.2 % (0.0-5.0); LYMPHOCYTES # (AUTO) 2.2 K/uL (0.60-3.4); LYMPHOCYTES % (AUTO) 25.4 (10.0-50.0); MEAN CORPUSCULAR HEMOGLOBIN 27.6 pg (27.0-31.0); MEAN CORPUSCULAR VOLUME 88.9 fl (80.0-94.0); MONOCYTES # (AUTO) 0.6 K/uL (0.4-2.0); MONOCYTES % (AUTO) 7.2 (0-10); NEUTROPHILS # (AUTO) 5.7 K/ul (2.0-6.9); NEUTROPHILS % (AUTO) 64.1 % (42.2-75.2); PLATELET COUNT 318 10^3/uL (140-440); RDW COEFFICIENT OF VARIATION 14.6 % (11.6-14.8); RED BLOOD COUNT 4.79 10^6/ul (4.70-6.10); WHITE BLOOD COUNT 8.83 K/ul (4.2-10.2)
[2022-12-06 07:08] LABS: ALANINE AMINOTRANSFERASE 25.6 U/L (0-50); ALBUMIN 4.08 g/dL (3.5-5.0); ALKALINE PHOSPHATASE 74.3 U/L (38-126); ASPARTATE AMINO TRANSFERASE 27.6 U/L (17-59); BILIRUBIN,TOTAL 0.45 mg/dL (0.2-1.3); BLOOD UREA NITROGEN 14.1 mg/dL (9-20); CALCIUM 9.27 mg/dL (8.4-10.2); CARBON DIOXIDE 26.2 mmol/L (22-30.0); CHLORIDE 108.8 mmol/L (98-107); CREATININE 0.88 mg/dL (0.60-1.10); GLUCOSE 143.9 mg/dL (74-106); LIPASE 78.4 U/L (23-300); POTASSIUM 4.25 mmol/L (3.5-5.1); TOTAL PROTEIN 7.19 g/dL (6.3-8.2)
[2022-12-06 07:19] LABS: TROPONIN I 0.024 ng/ml (0.0000-0.120)
--- NOTE | 2022-12-06 08:17 | CT ---
EXAM: CHEST CTA WITH CONTRAST (PULMONARY ARTERY) HISTORY: Tachycardia, lower chest pain, and abdominal pain. TECHNIQUE: CTA acquisition of the chest from the thoracic inlet to the upper abdomen following IV con trast administration timed to filling of the pulmonary artery. 3D/MIP/VR images were utilized. COMPARISON: CTA pulmonary angiogram 12/10/2018. FINDINGS: Lines, Tubes, Devices: None. Pulmonary arteries: - Diagnostic quality: Adequate. - Central(Main/Lobar/Interlobar): No embolus. - Peripheral (Segmental/Subsegmental): No embolus. - Right ventricle/Left ventricle ratio (normal <0.9): Normal. - Main pulmonary artery: Dilated measuring 3.5 cm in diameter. Lung Parenchyma, Pleura, and Airways: Central airways are patent. Small to moderate right and trace l eft pleural effusions. Stable 4 mm nodule in the right lower lobe on axial image 77, most likely belkys gn. Thoracic Inlet, Mediastinum, and [place]la: Thyroid gland is unremarkable. Mildly enlarged mediastinal nod es. Heart, Vessels, and Pericardium: Cardiomegaly. Small to moderate pericardial effusion. Coronary calci fications. Normal caliber thoracic aorta. Bones and Soft Tissues: Diffuse body wall edema. Multilevel degenerative spondylosis. Upper Abdomen: Small-volume ascites. Simple attenuating left renal cyst. Colonic diverticulosis. A lso see concurrent CT of the abdomen pelvis. IMPRESSION: No pulmonary embolus. Third spacing with small to moderate right and trace left pleural effusions, small to moderate perica rdial effusion, small volume ascites, and body wall edema. Cardiomegaly. Dilated main pulmonary artery suggesting pulmonary arterial hypertension. Coronary calcifications. All CT scans are performed using dose optimization techniques as appropriate to the performed exam an d include at least one of the following: Automated exposure control, adjustment of the mA and/or kV according t o size, and the use of iterative reconstruction technique.
--- NOTE | 2022-12-06 08:19 | CT ---
EXAM: CT ABDOMEN WITH CONTRAST. CT PELVIS WITH CONTRAST. HISTORY: Tachycardia. Abdominal induration. COMPARISON: 01/21/2013. TECHNIQUE: Multiple axial images of the abdomen and pelvis were obtained following intravenous admin istration of 150 mL Omnipaque 350, low osmolar. Images were reformatted in the sagittal and coronal plane. FINDINGS: Heart is enlarged. Small pericardial effusion noted. Moderate right pleural effusion and trace left pleural effusion partially imaged. Refer to same day chest CT report for details. Degenerative changes in the spine. No acute osseous abnormality. Diffuse subcutaneous edema over the abdomen pelvis. Some skin thickening over the lower anterior abd omen. No subcutaneous air or discrete circumscribed fluid collection. Subcutaneous edema of the scr otum as well. The liver is enlarged with prominence of the left hepatic lobe and caudate lobe, which is mildly incr eased from prior. No focal liver lesion.. Prominent soft tissue density at the gallbladder fundus o n axial image 33 is stable from prior study. Liver is low density compared to the spleen. Spleen is not enlarged. Pancreas and adrenal glands are normal. Exophytic homogeneous 1.9 cm fluid density l eft renal lesion on axial image 39. Kidneys otherwise normal. There is no bowel obstruction or acute inflammation. The appendix is normal. Diverticulosis noted. No focal bladder prostate abnormality detected. There is mild volume ascites. Generalized mesenter ic and retroperitoneal edema. No free air. Fatty umbilical hernia axial image 49. Atherosclerotic calcifications present without abdominal aortic aneurysm. A 1.2 cm short axis right iliac chain on axial image 72. Multiple additional nonenlarged lymph nodes in the retroperitoneum, iliac chains and inguinal regions as well as the pelvis. IMPRESSION: 1. Generalized edematous state with pleural effusions, pericardial effusion, ascites, mesenteric/ret roperitoneal edema and subcutaneous edema. Anterior lower abdominal skin thickening could indicate c ellulitis. 2. Hepatomegaly with fatty infiltration. Question early cirrhosis. 3. Diverticulosis. 4. Left renal cyst. 5. Atherosclerosis. 6. Nonspecific right iliac lymphadenopathy with additional prominent retroperitoneal, iliac, pelvic and inguinal lymph nodes. All CT scans are performed using dose optimization techniques as appropriate to the performed exam an d include at least one of the following: Automated exposure control, adjustment of the mA and/or kV according t o size, and the use of iterative reconstruction technique.
[2022-12-06] MEDS ORDERED: LASIX IVP ONE (10:25)
[2022-12-06 12:32] LABS: BILIRUBIN,URINE Negative (NEGATIVE); CLARITY,URINE Clear (CLEAR); COLOR,URINE Yellow (YELLOW); GLUCOSE, URINE (UA) Negative (NEGATIVE); KETONES,URINE Negative (NEGATIVE); LEUKOCYTE ESTERASE ,URINE Negative (NEGATIVE); NITRITE,URINE Negative (NEGATIVE); PROTEIN,URINE 2+ (NEGATIVE); URINE, BLOOD Negative (NEGATIVE); UROBILINOGEN,URINE 0.2 (0.2)
[2022-12-06 12:35] LABS: SQUAMOUS EPITHELIAL CELL,UR 0-2 (0-5); URINE RBC, MICROSCOPIC 0-2 (0-2); URINE WBC, MICROSCOPIC 0-2 (0-2)
[2022-12-06] MEDS ORDERED: TYLENOL PO PRN (13:56)
[2022-12-06 13:57] VITALS: BMI 47.0
[2022-12-06] MEDS ORDERED: HYDRALAZINE HCL IVP PRN (14:01)
--- NOTE | 2022-12-06 14:42 | PCM ---
Date of Service Date Seen by Provider: 12/06/22 Time Seen by Provider: 14:15 Admit Day/Time Admission Date: 12/06/22 Reason for Admission Chief Complaint: NEW ONSET CHF Hospital Provider Hospital Provider: VINAYAK ROBLES, [facility] [place] Primary Care Physician Primary Care Physician: MICHAEL VELASQUEZ MD History of Present Illness History of Present Illness: 47-year-old male with past medical history of uncontrolled hypertension, type II diabetes, hyperlipidemia, and obesity presented to the ER with complaints of shortness of breath and abdominal pain. Patient states that over the last month he feels he has gained anywhere from 30 to 40 pounds and due to the abdominal pain he has been unable to give himself his insulin injections. States that he is short of breath at all times but worse on exertion. Describes abdominal pain as a fullness and tightness. Location of pain is is throughout entire abdomen. States he has also experienced swelling in his bilateral lower extremities and has had difficulty wearing socks. Denies any known history of congestive heart failure. Denies any chest pain, fever, chills, body aches, nausea, vomiting, or diarrhea. States that he has not been taking his medications as prescribed including his insulin. Also has not been checking his blood sugar on a regular basis. Upon questioning patient states he has not seen a primary care provider in over a year. Last primary care provider dismissed patient due to no-show appointments. In ER patient's O2 saturation was dropping down into the 80s and he was placed on 2 L via nasal cannula. Case Discussed With Case Discussed With: Patient's case was discussed with the ER Physicians, Dr. Ashton [facility] Medical History Acute carpal tunnel syndrome of right wrist G56.01 - Carpal tunnel syndrome, right upper limb (ICD-10) BMI 34.0-34.9,adult Z68.34 - Body mass index [BMI] 34.0-34.9, adult (ICD-10) BMI 39.0-39.9,adult Z68.39 - Body mass index [BMI] 39.0-39.9, adult (ICD-10) Diabetes type 2, controlled E11.9 - Type 2 diabetes mellitus without complications (ICD-10) Elevated cholesterol E78.00 - Pure hypercholesterolemia, unspecified (ICD-10) Hypertension I10 - Essential (primary) hypertension (ICD-10) Leukocytosis D72.829 - Elevated white blood cell count, unspecified (ICD-10) Microalbuminuria R80.9 - Proteinuria, unspecified (ICD-10) MRSA (methicillin resistant staph aureus) culture positive Z22.322 - Carrier or suspected carrier of Methicillin resistant Staphylococcus aureus (ICD-10) Family History Mother Diabetes Cardiac disease COPD (chronic obstructive pulmonary disease) Social History Smoking and tobacco status: Current every day smoker Tobacco type: e-cigarettes Tobacco: How many years used: 20 Second hand smoke exposure: Yes Smoking risk assessment performed: No Alcohol intake: current Alcohol intake frequency: holidays/special occasions only Counseling given: No Counseling provided: none Substance use type: does not use Counseling given: No Counseling provided: none Ruth/mosque: OTHER Special ruth needs: No Agree to transfusion: Yes Adopted: No Caregiver/support person: No Foster care: No Household members: spouse, family and children Housing: house Marital status: M Daycare: no daycare Number of children: 5 Number of grandchildren: 0 Highest education level completed: high school graduate service: No FCI: No Current occupational status: unemployed Current occupational exposures/hazards: No Pets and animals: Yes (dogs) History of recent travel: No Sexually active: Yes Do you think of yourself as: straight/heterosexual Current gender identity: male Seatbelt use: always Drives intoxicated or rides with intoxicated local bulk driver: No Allergies Allergies Allergy/AdvReac Type Severity Reaction Status Date / Time Penicillins AdvReac Rash Verified 12/06/22 06:08 Current Medications Home Medications insulin syringes (disposable) 1 mL #100 ea 05/19/20 [Rx Confirmed 02/01/22 Last Taken Unknown] metformin 1,000 mg tablet 1,000 mg PO BID #60 tabs 04/27/21 [Rx Confirmed 02/01/22 Last Taken Unknown] pen needle, diabetic 31 gauge x 3/16" (TRUEplus Pen Needle) ##100 11/06/21 [Rx Confirmed 02/01/22 Last Taken Unknown] empagliflozin 10 mg tablet (Jardiance) 10 mg PO QAM #30 tabs 02/01/22 [Rx Co nfirmed 02/01/22 Last Taken Unknown] hydrochlorothiazide 25 mg tablet 25 mg PO QDAY #90 tabs 02/01/22 [Rx Confirmed 02/01/22 Last Taken Unknown] lisinopril 40 mg tablet 40 mg PO QDAY #90 tabs 02/01/22 [Rx Confirmed 02/01/22 Last Taken Unknown] semaglutide 0.25 mg or 0.5 mg (2 mg/1.5 mL) subcutaneous pen injector (Ozempic) 0.5 mg (0.4 mL) subcut QWEEK #1.5 mL 02/01/22 [Rx Confirmed 02/01/22 Last Taken Unknown] insulin detemir U-100 100 unit/mL (3 mL) subcutaneous pen (Levemir FlexTouch U- 100 Insulin) 25 unit (0.25 mL) subcut QDAY #15 mL 03/27/22 [Rx Last Taken Unknown] rosuvastatin 20 mg tablet See Rx Instructions .Route .COMPLEX #30 tabs 05/18/22 [Rx Last Taken Unknown] Home Acetaminophen (Acetaminophen 325 Mg Tablet) 650 mg PO Q4H PRN PRN Reason: Mild Pain Enoxaparin Sodium (Enoxaparin Sodium 40 Mg/0.4 Ml Syr) 40 mg SUBCUT DAILY SHAVONNE Furosemide (Furosemide Inj 40 Mg/4 Ml Vial) 40 mg IVP BIDAC SHAVONNE Hydralazine HCl (Hydralazine Hcl 20 Mg/Ml Sdv) 10 mg IVP Q6H PRN PRN Reason: Hypertension Insulin Human Regular (Insulin Regular, Human 100 Unit/Ml (3ml) Vial) 0 unit SUBCUT PRN PRN; Protocol PRN Reason: Hyperglycemia Discontinued Medications Furosemide (Furosemide Inj 20 Mg/2 Ml Vial) 20 mg IVP ONCE ONE Stop: 12/06/22 10:26 Last Admin: 12/06/22 10:36 Dose: 20 mg Sodium Chloride (Sodium Chloride) 1,000 mls @ 500 mls/hr IV BOLUS STA Stop: 12/06/22 08:29 Last Admin: 12/06/22 06:52 Dose: 500 mls/hr Morphine Sulfate (Morphine Sulfate 4 Mg/Ml Syringe) 4 mg IVP ONCE ONE Stop: 12/06/22 06:31 Last Admin: 12/06/22 06:53 Dose: 4 mg Ondansetron HCl (Ondansetron Hcl/Pf 4 Mg/2 Ml Sdv) 4 mg IVP ONCE ONE Stop: 12/06/22 06:31 Last Admin: 12/06/22 06:53 Dose: 4 mg Review of Systems Constitutional: Reports Recent Weight Gain (1 month) Head: Reports Normocephalic Eyes: Reports No symptoms Ears: Reports No symptoms Nose: Reports No symptoms Mouth: Reports No symptoms Throat: Reports No symptoms Cardiovascular: Reports No symptoms Respiratory: Reports Shortness of air Gastrointestinal: Reports No symptoms Genitourinary: Reports No Symptoms Musculoskeletal: Reports No symptoms Endocrine: Reports No symptoms Hematology: Reports No symptoms Immunology: Reports No symptoms Neurological: Reports No symptoms Psychiatric: Reports No symptoms Physical examination Most Recent Vital Signs: Most Recent Vital Signs Temperature 97.5 F L 12/06/22 14:00 Temperature Source Oral 12/06/22 14:00 Temperature Source Oral 12/06/22 05:58 Pulse Rate 112 H 12/06/22 14:00 Respiratory Rate 20 12/06/22 14:00 Blood Pressure 136/95 H 12/06/22 14:00 Blood Pressure Mean 108 12/06/22 14:00 Blood Pressure Left Arm 136/95 12/06/22 13:43 Blood Pressure Location Left Arm 12/06/22 14:00 Blood Pressure Position Sitting 12/06/22 14:00 O2 Sat by Pulse Oximetry 98 12/06/22 14:00 Oxygen Delivery Method Nasal Cannula 12/06/22 14:00 Oxygen Flow Rate 2 12/06/22 14:00 Height 5 ft 6 in 12/06/22 13:43 Weight 291 lb 7 oz 12/06/22 13:43 Telemetry Type Remote Telemetry 12/06/22 14:00 Telemetry Monitoring Started 12/06/22 14:00 Telemetry Heart Rate 113 H 12/06/22 14:00 EKG MS Interval 0.13 12/06/22 14:00 EKG QRS Interval 0.09 12/06/22 14:00 Telemetry Strip Reading Sinus Tach 12/06/22 14:00 Appearance: Positive No Apparent Distress, Alert and Oriented x3 and Obese Skin: Positive Erythema (to lower abdomen, bilateral flanks, and bilateral thighs/knee region) HEENT: Positive Normocephalic and PERRLA Neck: Positive Supple and Midline Trachea Chest/Lungs: Positive Symmetrical With Equal Breath Sounds, Clear to Auscultation Bilaterally, Good Air Movement all 4 Lung Mohan and Other (Dimished) Heart: Positive RRR, Pulses Normal and Tachycardia GI/: Positive Soft, Nontender, Bowel Sounds Normal and Other (Rotund abdomen) Musculoskeletal: Positive Not Examined Extremities: Positive Edema (+2-3 pitting BLE), Intact Peripheral Pulses, Stable Joints Without Laxity and Good ROM in All Joints Neurological: Positive Sensation Intact, Motor intact, Reflexes Intact, Alert, Oriented and Muscle Strength 5/5 in Upper and Lower Extremities Bilaterally Psychiatric: Positive Oriented x4, Appropriate Mood, Appropriate Affect, Intact Memory, Good Short-Term Recall, Good Long-Term Recall, Normal Judgement and Normal Insight Labs This Visit Labs This Visit: Labs This Visit 12/06/22 12/06/22 06:46 12:35 WBC 8.83 RBC 4.79 Hgb 13.2 L Hct 42.6 MCV 88.9 MCH 27.6 MCHC 31.0 L RDW Coeff of [place] 14.6 Plt Count 318 Immature Gran % (Auto) 0.2 Neut % (Auto) 64.1 Lymph % (Auto) 25.4 [place] % (Auto) 7.2 Eos % (Auto) 2.4 Baso % (Auto) 0.7 Neut # (Auto) 5.7 Lymph # (Auto) 2.2 [place] # (Auto) 0.6 Eos # (Auto) 0.2 Baso # (Auto) 0.1 Immature Gran # (Auto) 0.0 Sodium 141.0 Potassium 4.25 Chloride 108.8 H Carbon Dioxide 26.2 Anion Gap 10.25 BUN 14.1 Creatinine 0.88 Estimated GFR (MDRD) 92.00 BUN/Creatinine Ratio 16.02 Glucose 143.9 H Lactic Acid 1.17 Calcium 9.27 Total Bilirubin 0.45 AST 27.6 ALT 25.6 Alkaline Phosphatase 74.3 Troponin I 0.024 NT-Pro-B Natriuret Pep 3260 H Total Protein 7.19 Albumin 4.08 Globulin 3.11 Albumin/Globulin Ratio 1.31 Lipase 78.4 Urine Color Yellow Urine Clarity Clear Urine pH 5.0 Ur Specific [place] 1.020 Urine Protein 2+ H Urine Glucose (UA) Negative Urine Ketones Negative Urine Blood Negative Urine Nitrite Negative Urine Bilirubin Negative Urine Urobilinogen 0.2 Ur Leukocyte Esterase Negative Urine Microscopic RBC 0-2 Urine Microscopic WBC 0-2 Ur Squamous Epith Cells 0-2 Acetone, Qual None Imaging Imaging: EXAM: CHEST CTA WITH CONTRAST (PULMONARY ARTERY) IMPRESSION: No pulmonary embolus. Third spacing with small to moderate right and trace left pleural effusions, small to moderate pericardial effusion, small volume ascites, and body wall edema. Cardiomegaly. Dilated main pulmonary artery suggesting pulmonary arterial hypertension. Coronary calcifications. EXAM: CT ABDOMEN WITH CONTRAST. CT PELVIS WITH CONTRAST. IMPRESSION: 1. Generalized edematous state with pleural effusions, pericardial effusion, ascites, mesenteric/retroperitoneal edema and subcutaneous edema. Anterior lower abdominal skin thickening could indicate cellulitis. 2. Hepatomegaly with fatty infiltration. Question early cirrhosis. 3. Diverticulosis. 4. Left renal cyst. 5. Atherosclerosis. 6. Nonspecific right iliac lymphadenopathy with additional prominent retroperitoneal, iliac, pelvic and inguinal lymph nodes. Review Statement Review Statement: I have independently reviewed and interpreted the labs/EKGs/imaging that were or dered by the ER provider. I have reviewed all outside records that are available currently in our EMR including imaging/notes/labs from previous visits. Plan Plan: 1. Acute Hypoxic Respiratory Failure in the setting of New Onset CHF - requiring 2L currently, received 1 dose of lasix in ER, wean O2 as tolerated, lasix 40 mg BID, I&O, daily weight, fluid restriction 1800 2. New Onset CHF - last echo completed in 2017 showed LVH with EF of 52% without effusion, pt reports weight gain of 30-40 lbs in 1 month, new pleural effusions on chest CT and pericardiac effusion; checking echo tomorrow, in addition see #1, hold PO diuretic antihypertensive 3. Ascites - has hx of hepatomegaly since 2012, liver enzymes normal, likely related to #2 4. Cellulitis to abdomen - erythema noted, no discharge, no fever at this time, WBC normal, checking CRP, will treat with abx if CRP elevated 5. Mesenteric lymphadenopathy - new finding since last CT abd in 2012, recommend follow-up with PCP upon discharge for repeat imaging and possible referral to oncology to r/o cancer 6. Hypertension - chronic, uncontrolled, restart home medications - has not been taking as prescribed, holding any po diuretics, hydralazine prn 7. Hyperlipidemia - chronic, continue home medications, checking lipid panel 8. Diabetes Mellitus, Type 2 - noncomplaint, does not check sugar at home, has not been taking his medications as prescribed, hold oral agents, accuchecks ACHS with ssi 9. Tobacco use - discussed cessation, nicotine patch if patient desires DVT Prophylaxis: Lovenox Time Spent: Greater than 80 minutes spent with patient, 50% of the time spent with this patient was devoted to counseling and coordination of care. Advanced [facility] Plannin minutes spent discussing advance care planning. Smoking Cessation: 5 minutes spent discussing smoking cessation. Disposition: Admit to: Med/Surg Inpatient DO NOT INTUBATE, CPR ONLY Discussed Plan of Care with Dr. Jordyn Johnson. Medications Medication Orders: Medications Ordered Category Date Time Status Acetaminophen [Tylenol] Meds 12/06/22 13:56 Active 650 mg PO Q4H PRN Enoxaparin Sodium [Lovenox] Meds 12/07/22 09:00 Active 40 mg SUBCUT DAILY Furosemide [Lasix] Meds 12/06/22 17:00 Ordered 40 mg IVP BIDAC Hydralazine HCl Meds 12/06/22 14:01 Active 10 mg IVP Q6H PRN Insulin Regular, Human [Humulin R] Meds 12/06/22 14:00 Active See Protocol SUBCUT PRN PRN
[2022-12-06] MEDS: LEVEMIR SUBCUT SCH (17:09)
[2022-12-06] MEDS: ZESTRIL PO SCH (17:09)
[2022-12-06] MEDS: LASIX IVP SCH (17:12)
[2022-12-06] MEDS: HUMULIN R SUBCUT PRN (20:29)
[2022-12-06] MEDS: CRESTOR PO SCH (20:29)
[2022-12-07 04:47] LABS: BASOPHILS # (AUTO) 0.1 K/uL (0-0.2); BASOPHILS % (AUTO) 0.6 % (0.0-3.0); EOSINOPHILS # (AUTO) 0.2 K/ul (0.0-0.7); EOSINOPHILS % (AUTO) 2.3 % (0.0-7.0); HEMATOCRIT 43.3 % (42.0-52.0); IMMATURE GRANULOCYTE % (AUTO) 0.1 % (0.0-5.0); LYMPHOCYTES # (AUTO) 2.1 K/uL (0.60-3.4); LYMPHOCYTES % (AUTO) 21.1 (10.0-50.0); MEAN CORPUSCULAR HEMOGLOBIN 27.1 pg (27.0-31.0); MEAN CORPUSCULAR VOLUME 90.4 fl (80.0-94.0); MONOCYTES # (AUTO) 0.7 K/uL (0.4-2.0); MONOCYTES % (AUTO) 7.1 (0-10); NEUTROPHILS # (AUTO) 6.8 K/ul (2.0-6.9); NEUTROPHILS % (AUTO) 68.8 % (42.2-75.2); PLATELET COUNT 309 10^3/uL (140-440); RDW COEFFICIENT OF VARIATION 14.6 % (11.6-14.8); RED BLOOD COUNT 4.79 10^6/ul (4.70-6.10); WHITE BLOOD COUNT 9.86 K/ul (4.2-10.2)
[2022-12-07 04:59] LABS: ALANINE AMINOTRANSFERASE 26.6 U/L (0-50); ALBUMIN 3.99 g/dL (3.5-5.0); ALKALINE PHOSPHATASE 73.6 U/L (38-126); ASPARTATE AMINO TRANSFERASE 29.5 U/L (17-59); BILIRUBIN,TOTAL 0.68 mg/dL (0.2-1.3); CALCIUM 8.85 mg/dL (8.4-10.2); CHLORIDE 104.5 mmol/L (98-107); CHOLESTEROL 106.4 mg/dL (0-200); CREATININE 1.07 mg/dL (0.60-1.10); GLUCOSE 148.1 mg/dL (74-106); HDL CHOLESTEROL 29.1 mg/dL (35-60); POTASSIUM 4.8 mmol/L (3.5-5.1); SODIUM 141.1 mmol/L (134.5-145); TOTAL PROTEIN 6.99 g/dL (6.3-8.2); TRIGLYCERIDES 126.1 mg/dL (0-150)
[2022-12-07 05:28] LABS: THYROID STIMULATING HORMONE 1.08 uIU/L (0.465-4.68)
[2022-12-07] MEDS: LASIX IVP SCH ×3 (05:49→20:42)
[2022-12-07] MEDS: LOVENOX SUBCUT SCH (08:23)
[2022-12-07] MEDS: ZESTRIL PO SCH (08:23)
[2022-12-07] MEDS: LEVEMIR SUBCUT SCH (08:24)
--- NOTE | 2022-12-07 08:57 | PCM.PROG ---
Date/Time Seen Date Seen by Provider: 12/07/22 Time Seen by Provider: 08:15 Provider Provider: VINAYAK ROBLES, [facility] Chief Complaint Chief Complaint: NEW ONSET CHF Subjective Subjective: Had 2 episodes of SVT on nightshift. 1 episode lasted for 1-2 minutes. 2nd episode required valsava manuvers for conversion. Rate up to 150s-160s. Patient states he did not experience chest pain or palpitations. Did experience SOB. Denies any other symptoms during these episodes. States he has been having these episodes frequently at home. Continuing to require oxygen at this time. Objective Appearance: Positive No Apparent Distress, Alert and Oriented x3, Ill-Appearing and Obese Chest/Lungs: Positive Symmetrical With Equal Breath Sounds, Clear to Auscultation Bilaterally and Good Air Movement all 4 Lung Mohan Heart: Positive RRR, Pulses Normal and Tachycardia GI/: Positive Soft, Nontender, Bowel Sounds Normal and Other (rotund, distended abdomen) Musculoskeletal: Positive Other (+2 pitting edema BLE) and Not Examined Neurological: Positive Sensation Intact, Motor intact, Reflexes Intact, Cranial Nerves Intact, Alert, Oriented and Muscle Strength 5/5 in Upper and Lower Extremities Bilaterally Vital Signs Vital Signs: Vital Signs: Last 24 Hours 12/06/22 13:34 12/06/22 13:43 12/06/22 14:00 Temperature 97.5 F L 97.5 F L Temperature Source Oral Oral Pulse Rate 110 H 112 H 112 H Pulse Rate [Apical] Respiratory Rate 22 H 18 20 Blood Pressure 129/91 H 136/95 H Blood Pressure Mean 108 Blood Pressure Left Arm 136/95 Blood Pressure Location Left Arm Blood Pressure Position Sitting Sitting O2 Sat by Pulse Oximetry 98 99 98 Oxygen Delivery Method Nasal Cannula Nasal Cannula Oxygen Flow Rate 2 2 2 Height 5 ft 6 in Weight 291 lb 7 oz Telemetry Type Telemetry Monitoring Telemetry Heart Rate EKG MN Interval EKG QRS Interval EKG QT Interval Telemetry Strip Reading 12/06/22 14:00 12/06/22 13:43 12/06/22 18:56 Temperature Temperature Source Pulse Rate Pulse Rate [Apical] 110 H Respiratory Rate Blood Pressure Blood Pressure Mean Blood Pressure Left Arm Blood Pressure Location Blood Pressure Position O2 Sat by Pulse Oximetry Oxygen Delivery Method Nasal Cannula Oxygen Flow Rate 2 Height Weight Telemetry Type Remote Telemetry Remote Telemetry Telemetry Monitoring Started Continues Telemetry Heart Rate 113 H 108 H EKG MN Interval 0.13 0.13 EKG QRS Interval 0.09 0.07 EKG QT Interval Telemetry Strip Reading Sinus Tach ST 12/06/22 20:00 12/06/22 21:36 12/07/22 01:00 Temperature 97.1 F L Temperature Source Temporal Artery Scan Pulse Rate 111 H Pulse Rate [Apical] 110 H Respiratory Rate 20 20 Blood Pressure 146/101 H Blood Pressure Mean 116 Blood Pressure Left Arm Blood Pressure Location Left Arm Blood Pressure Position Supine O2 Sat by Pulse Oximetry 93 L Oxygen Delivery Method Nasal Cannula Nasal Cannula Oxygen Flow Rate 2 2 Height Weight Telemetry Type Remote Telemetry Telemetry Monitoring Continues Telemetry Heart Rate 112 H EKG MN Interval 0.12 EKG QRS Interval 0.10 EKG QT Interval 0.34 Telemetry Strip Reading Sinus tach no ectopy noted 12/07/22 05:36 12/07/22 05:48 12/07/22 07:00 Temperature 98.5 F Temperature Source Temporal Artery Scan Pulse Rate 110 H Pulse Rate [Apical] Respiratory Rate 20 Blood Pressure 154/104 H Blood Pressure Mean 120 Blood Pressure Left Arm Blood Pressure Location Left Arm Blood Pressure Position Supine O2 Sat by Pulse Oximetry 95 Oxygen Delivery Method Nasal Cannula Oxygen Flow Rate 2 Height Weight 284 lb 9.6 oz Telemetry Type Remote Telemetry Telemetry Monitoring Continues Telemetry Heart Rate 109 H EKG MN Interval 0.16 EKG QRS Interval 0.08 EKG QT Interval Telemetry Strip Reading ST 12/07/22 07:36 Temperature Temperature Source Pulse Rate Pulse Rate [Apical] 108 H Respiratory Rate 20 Blood Pressure Blood Pressure Mean Blood Pressure Left Arm Blood Pressure Location Blood Pressure Position O2 Sat by Pulse Oximetry Oxygen Delivery Method Nasal Cannula Oxygen Flow Rate 2 Height Weight Telemetry Type Telemetry Monitoring Telemetry Heart Rate EKG MN Interval EKG QRS Interval EKG QT Interval Telemetry Strip Reading Lab Results Lab Results: Lab Results: Last 24 Hours 12/07/22 12/06/22 12/06/22 04:35 12:35 06:46 WBC 9.86 RBC 4.79 Hgb 13.0 L Hct 43.3 MCV 90.4 MCH 27.1 MCHC 30.0 L RDW Coeff of [place] 14.6 Plt Count 309 Immature Gran % (Auto) 0.1 Neut % (Auto) 68.8 Lymph % (Auto) 21.1 [place] % (Auto) 7.1 Eos % (Auto) 2.3 Baso % (Auto) 0.6 Neut # (Auto) 6.8 Lymph # (Auto) 2.1 [place] # (Auto) 0.7 Eos # (Auto) 0.2 Baso # (Auto) 0.1 Immature Gran # (Auto) 0.0 Sodium 141.1 Potassium 4.80 Chloride 104.5 Carbon Dioxide 32.0 H Anion Gap 9.40 BUN 17.0 Creatinine 1.07 Estimated GFR (MDRD) 74.00 BUN/Creatinine Ratio 15.88 Glucose 148.1 H Hemoglobin A1c 7.98 H Calcium 8.85 Total Bilirubin 0.68 AST 29.5 ALT 26.6 Alkaline Phosphatase 73.6 C-Reactive Prot, Quant 8 NT-Pro-B Natriuret Pep 3260 H Total Protein 6.99 Albumin 3.99 Globulin 3.00 Albumin/Globulin Ratio 1.33 Triglycerides 126.1 Cholesterol 106.4 LDL Cholesterol, Calc 52 VLDL Cholesterol 25 HDL Cholesterol 29.1 L Cholesterol/HDL Ratio 3.7 L TSH 1.080 Urine Color Yellow Urine Clarity Clear Urine pH 5.0 Ur Specific [place] 1.020 Urine Protein 2+ H Urine Glucose (UA) Negative Urine Ketones Negative Urine Blood Negative Urine Nitrite Negative Urine Bilirubin Negative Urine Urobilinogen 0.2 Ur Leukocyte Esterase Negative Urine Microscopic RBC 0-2 Urine Microscopic WBC 0-2 Ur Squamous Epith Cells 0-2 Additional Comments Additional Comments: I have independently reviewed and interpreted the labs/EKGs/imaging ordered during this hospital stay. I have reviewed outside records that are available in our EMR that pertain to medical stay including imaging/notes/labs from previous visits. Active Medications Active Medications: Medications Generic Name Dose Route Start Last Admin Trade Name Freq PRN Reason Stop Dose Admin Acetaminophen 650 mg 12/06/22 13:56 Acetaminophen 325 Mg Tablet PO Q4H PRN Mild Pain Enoxaparin Sodium 40 mg 12/07/22 09:00 12/07/22 08:23 Enoxaparin Sodium 40 Mg/0.4 Ml Syr SUBCUT 40 mg DAILY SHAVONNE Administration Furosemide 40 mg 12/07/22 13:00 Furosemide Inj 40 Mg/4 Ml Vial IVP Q8HR SHAVONNE Hydralazine HCl 10 mg 12/06/22 14:01 Hydralazine Hcl 20 Mg/Ml Sdv IVP Q6H PRN Hypertension Insulin Detemir 25 unit 12/06/22 15:30 12/07/22 08:24 Insulin Detemir 100 Units/Ml SUBCUT 25 unit DAILY SHAVONNE Administration Insulin Human Regular 0 unit 12/06/22 14:00 12/06/22 20:29 Insulin Regular, Human 100 Unit/Ml (3ml) Vial SUBCUT 3 unit PRN PRN Administration Hyperglycemia Protocol Lisinopril 40 mg 12/06/22 15:30 12/07/22 08:23 Lisinopril 40 Mg Tablet PO 40 mg DAILY SHAVONNE Administration Non-Formulary Medication 0.5 mg 12/10/22 09:00 Semaglutide [Ozempic] SUBCUT WEEKLY SHAVONNE Rosuvastatin Calcium 20 mg 12/06/22 21:00 12/06/22 20:29 Rosuvastatin Calcium 10 Mg Tablet PO 20 mg BEDTIME SHAVONNE Administration Plan Plan: 1. Acute Hypoxic Respiratory Failure in the setting of New Onset CHF - requiring 2L currently, received 1 dose of lasix in ER, wean O2 as tolerated, lasix 40 mg Q8H, I&O, daily weight, fluid restriction 1800 2. New Onset CHF - last echo completed in 2016 showed LVH with EF of 52% without effusion, pt reports weight gain of 30-40 lbs in 1 month, new pleural effusions on chest CT and pericardiac effusion; checking echo today, in addition see #1, hold PO diuretic antihypertensive 3. Ascites - has hx of hepatomegaly since 2012, liver enzymes normal, likely related to #2 4. Cellulitis to abdomen - erythema noted, no discharge or open areas, no fever, WBC normal, crp negative 5. Mesenteric lymphadenopathy - new finding since last CT abd in 2012, recommend follow-up with PCP upon discharge for repeat imaging and possible referral to oncology to r/o cancer 6. Hypertension - chronic, uncontrolled, restart home medications - has not been taking as prescribed, holding any po diuretics, hydralazine prn 7. Hyperlipidemia - chronic, continue home medications, lipid panel normal 8. Diabetes Mellitus, Type 2 - noncomplaint, does not check sugar at home, has not been taking his medications as prescribed, A1C 7.9, hold oral agents, accuchecks ACHS with ssi 9. Tobacco use - discussed cessation, nicotine patch if patient desires DVT Prophylaxis: Lovenox Review Statement Review Statement: I have personally discussed and reviewed the patient's visit/currently labs/imaging/decision making with Dr. Johnson, my supervising attending. Greater that 50 minutes spent with patient, 50% of the time spent with this patient was devoted to counseling and coordination of care.
[2022-12-07] MEDS ORDERED: LOVENOX SUBCUT SCH (09:00)
[2022-12-07] MEDS: HUMULIN R SUBCUT PRN ×2 (12:08→20:42)
[2022-12-07] MEDS: TOPROL XL PO SCH (13:25)
[2022-12-07] MEDS: CRESTOR PO SCH (20:42)
[2022-12-08] MEDS: LASIX IVP SCH ×3 (04:29→20:52)
[2022-12-08 06:09] LABS: BASOPHILS # (AUTO) 0.1 K/uL (0-0.2); BASOPHILS % (AUTO) 0.6 % (0.0-3.0); EOSINOPHILS # (AUTO) 0.2 K/ul (0.0-0.7); EOSINOPHILS % (AUTO) 2.3 % (0.0-7.0); HEMATOCRIT 44.1 % (42.0-52.0); IMMATURE GRANULOCYTE % (AUTO) 0.1 % (0.0-5.0); LYMPHOCYTES # (AUTO) 1.8 K/uL (0.60-3.4); LYMPHOCYTES % (AUTO) 23.3 (10.0-50.0); MEAN CORPUSCULAR HEMOGLOBIN 26.4 pg (27.0-31.0); MEAN CORPUSCULAR HGB CONC 29.5 (31.8-35.4); MEAN CORPUSCULAR VOLUME 89.6 fl (80.0-94.0); MONOCYTES # (AUTO) 0.6 K/uL (0.4-2.0); MONOCYTES % (AUTO) 7.2 (0-10); NEUTROPHILS # (AUTO) 5.3 K/ul (2.0-6.9); NEUTROPHILS % (AUTO) 66.5 % (42.2-75.2); PLATELET COUNT 291 10^3/uL (140-440); RDW COEFFICIENT OF VARIATION 14.6 % (11.6-14.8); RED BLOOD COUNT 4.92 10^6/ul (4.70-6.10); WHITE BLOOD COUNT 7.91 K/ul (4.2-10.2)
[2022-12-08 06:22] LABS: ALANINE AMINOTRANSFERASE 26.3 U/L (0-50); ALBUMIN 3.97 g/dL (3.5-5.0); ALKALINE PHOSPHATASE 73.3 U/L (38-126); ASPARTATE AMINO TRANSFERASE 28.9 U/L (17-59); BILIRUBIN,TOTAL 0.61 mg/dL (0.2-1.3); BLOOD UREA NITROGEN 15.9 mg/dL (9-20); CALCIUM 8.85 mg/dL (8.4-10.2); CARBON DIOXIDE 37.6 mmol/L (22-30.0); CHLORIDE 100.7 mmol/L (98-107); CREATININE 1.04 mg/dL (0.60-1.10); GLUCOSE 137.9 mg/dL (74-106); POTASSIUM 4.1 mmol/L (3.5-5.1); SODIUM 143.7 mmol/L (134.5-145); TOTAL PROTEIN 7.09 g/dL (6.3-8.2)
[2022-12-08] MEDS: LOVENOX SUBCUT SCH (08:34)
[2022-12-08] MEDS: ASPIRIN CHEWABLE PO SCH (08:34)
[2022-12-08] MEDS: TOPROL XL PO SCH (08:34)
[2022-12-08] MEDS: ZESTRIL PO SCH (08:34)
[2022-12-08] MEDS: LEVEMIR SUBCUT SCH (08:41)
--- NOTE | 2022-12-08 09:29 | PCM.PROG ---
Date/Time Seen Date Seen by Provider: 12/08/22 Time Seen by Provider: 08:45 Provider Provider: VINAYAK ROBLES, [facility] Chief Complaint Chief Complaint: NEW ONSET CHF Subjective Subjective: No events overnight. Feeling better today. Sitting on side of bed eating breakfast without oxygen. States can tell a difference with swelling Objective Appearance: Positive No Apparent Distress, Alert and Oriented x3 and Obese Chest/Lungs: Positive Symmetrical With Equal Breath Sounds, Clear to Auscultation Bilaterally and Good Air Movement all 4 Lung Mohan Heart: Positive RRR and Pulses Normal GI/: Positive Soft, Nontender, Bowel Sounds Normal and Other (rotund, distended abdomen - less tightness compared to initial) Musculoskeletal: Positive Normal Gait and Station and Other (+1 edema - no pitting) Neurological: Positive Sensation Intact, Motor intact, Reflexes Intact, Alert, Oriented and Muscle Strength 5/5 in Upper and Lower Extremities Bilaterally Vital Signs Vital Signs: Vital Signs: Last 24 Hours 12/07/22 13:00 12/07/22 14:00 12/07/22 19:00 Temperature 97.3 F L Temperature Source Oral Pulse Rate 94 Pulse Rate [Apical] Respiratory Rate 18 Blood Pressure 133/85 Blood Pressure Mean 101 Blood Pressure Location Left Arm Blood Pressure Position Sitting O2 Sat by Pulse Oximetry 92 L Oxygen Delivery Method Nasal Cannula Oxygen Flow Rate 2 Weight Telemetry Type Remote Telemetry Remote Telemetry Telemetry Monitoring Continues Continues Telemetry Heart Rate 107 H 108 H EKG WI Interval 0.20 0.15 EKG QRS Interval 0.10 0.07 Telemetry Strip Reading SINUS TACH ST 12/07/22 20:44 12/07/22 20:00 12/08/22 01:00 Temperature 97.5 F L Temperature Source Oral Pulse Rate 97 Pulse Rate [Apical] 98 Respiratory Rate 18 18 Blood Pressure 126/81 Blood Pressure Mean 96 Blood Pressure Location Left Arm Blood Pressure Position Supine O2 Sat by Pulse Oximetry 95 Oxygen Delivery Method Nasal Cannula Nasal Cannula Oxygen Flow Rate 2 2 Weight Telemetry Type Remote Telemetry Telemetry Monitoring Continues Telemetry Heart Rate 104 H EKG WI Interval 0.15 EKG QRS Interval 0.[address] 12/08/22 06:00 12/08/22 06:00 12/08/22 07:00 Temperature 97.5 F L Temperature Source Oral Pulse Rate 95 Pulse Rate [Apical] Respiratory Rate 18 Blood Pressure 139/96 H Blood Pressure Mean 110 Blood Pressure Location Right Arm Blood Pressure Position Supine O2 Sat by Pulse Oximetry 94 L Oxygen Delivery Method Nasal Cannula Oxygen Flow Rate 2 Weight 271 lb 7 oz Telemetry Type Remote Telemetry Telemetry Monitoring Continues Telemetry Heart Rate 102 H EKG WI Interval 0.16 EKG QRS Interval 0.[address] 12/08/22 08:00 Temperature Temperature Source Pulse Rate Pulse Rate [Apical] 107 H Respiratory Rate 18 Blood Pressure Blood Pressure Mean Blood Pressure Location Blood Pressure Position O2 Sat by Pulse Oximetry Oxygen Delivery Method Room Air Oxygen Flow Rate Weight Telemetry Type Telemetry Monitoring Telemetry Heart Rate EKG WI Interval EKG QRS Interval Telemetry Strip Reading Lab Results Lab Results: Lab Results: Last 24 Hours 12/08/22 06:00 WBC 7.91 RBC 4.92 Hgb 13.0 L Hct 44.1 MCV 89.6 MCH 26.4 L MCHC 29.5 L RDW Coeff of [place] 14.6 Plt Count 291 Immature Gran % (Auto) 0.1 Neut % (Auto) 66.5 Lymph % (Auto) 23.3 [place] % (Auto) 7.2 Eos % (Auto) 2.3 Baso % (Auto) 0.6 Neut # (Auto) 5.3 Lymph # (Auto) 1.8 [place] # (Auto) 0.6 Eos # (Auto) 0.2 Baso # (Auto) 0.1 Immature Gran # (Auto) 0.0 Sodium 143.7 Potassium 4.10 Chloride 100.7 Carbon Dioxide 37.6 H Anion Gap 9.50 BUN 15.9 Creatinine 1.04 Estimated GFR (MDRD) 76.00 BUN/Creatinine Ratio 15.28 Glucose 137.9 H Calcium 8.85 Total Bilirubin 0.61 AST 28.9 ALT 26.3 Alkaline Phosphatase 73.3 Total Protein 7.09 Albumin 3.97 Globulin 3.12 Albumin/Globulin Ratio 1.27 Additional Comments Additional Comments: I have independently reviewed and interpreted the labs/EKGs/imaging ordered during this hospital stay. I have reviewed outside records that are available in our EMR that pertain to medical stay including imaging/notes/labs from previous visits. Active Medications Active Medications: Medications Generic Name Dose Route Start Last Admin Trade Name Freq PRN Reason Stop Dose Admin Acetaminophen 650 mg 12/06/22 13:56 Acetaminophen 325 Mg Tablet PO Q4H PRN Mild Pain Aspirin 81 mg 12/08/22 08:30 12/08/22 08:34 Aspirin 81 Mg Tab.Chew PO 81 mg DAILYWM SHAVONNE Administration Enoxaparin Sodium 40 mg 12/07/22 09:00 12/08/22 08:34 Enoxaparin Sodium 40 Mg/0.4 Ml Syr SUBCUT 40 mg DAILY SHAVONNE Administration Furosemide 40 mg 12/07/22 13:00 12/08/22 04:29 Furosemide Inj 40 Mg/4 Ml Vial IVP 40 mg Q8HR SHAVONNE Administration Hydralazine HCl 10 mg 12/06/22 14:01 Hydralazine Hcl 20 Mg/Ml Sdv IVP Q6H PRN Hypertension Insulin Detemir 25 unit 12/06/22 15:30 12/08/22 08:41 Insulin Detemir 100 Units/Ml SUBCUT 25 unit DAILY SHAVONNE Administration Insulin Human Regular 0 unit 12/06/22 14:00 12/07/22 20:42 Insulin Regular, Human 100 Unit/Ml (3ml) Vial SUBCUT 4 unit PRN PRN Administration Hyperglycemia Protocol Lisinopril 40 mg 12/06/22 15:30 12/08/22 08:34 Lisinopril 40 Mg Tablet PO 40 mg DAILY SHAVONNE Administration Metoprolol Succinate 50 mg 12/07/22 13:00 12/08/22 08:34 Metoprolol Succinate 50 Mg Tab.Er.24h PO 50 mg DAILY SHAVONNE Administration Non-Formulary Medication 0.5 mg 12/10/22 09:00 Semaglutide [Ozempic] SUBCUT WEEKLY [facility] Rosuvastatin Calcium 20 mg 12/06/22 21:00 12/07/22 20:42 Rosuvastatin Calcium 10 Mg Tablet PO 20 mg BEDTIME SHAVONNE Administration Plan Plan: 1. Acute Hypoxic Respiratory Failure in the setting of New Onset CHF - resolved, no longer requiring oxygen continuously 2. Systolic CHF, new onset - echo completed yesterday showing EF 40-45% with significant cardiomegaly, paradoxical septal motion, and trace pleural effusion; diuresing well with lasix 40 mg Q8H, plan to transition to PO starting tomorrow, started on metoprolol 50 mg yesterday, Also will be starting aldactone 25 mg daily, aspirin 81 mg daily, and upon discharge starting jardiance 5 mg daily, refer to cardiology 3. Ascites - has hx of hepatomegaly since 2013, liver enzymes normal, likely related to #2 4. Cellulitis to abdomen - resolved, likely from fluid retention, no abx needed 5. Mesenteric lymphadenopathy - new finding since last CT abd in 2013, recommend follow-up with PCP upon discharge for repeat imaging and possible referral to oncology to r/o cancer 6. Hypertension - chronic, uncontrolled, restart home medications - has not been taking as prescribed, holding any po diuretics, hydralazine prn 7. Hyperlipidemia - chronic, continue home medications, lipid panel normal 8. Diabetes Mellitus, Type 2 - noncomplaint, does not check sugar at home, has not been taking his medications as prescribed, A1C 7.9, hold oral agents, a ccuchecks ACHS with ssi, continue home long acting 9. Tobacco use - discussed cessation, nicotine patch if patient desires DVT Prophylaxis: Lovenox Plan to D/C Saturday after transitioning to oral medications tomorrow. Will need establishment with PCP and Cardiology referral upon discharge. Review Statement Review Statement: I have personally discussed and reviewed the patient's visit/currently labs/imaging/decision making with Dr. Johnson, my supervising attending. Greater that 50 minutes spent with patient, 50% of the time spent with this patient was devoted to counseling and coordination of care.
[2022-12-08] MEDS: HUMULIN R SUBCUT PRN ×3 (12:25→21:37)
[2022-12-08] MEDS: CRESTOR PO SCH (20:52)
[2022-12-09] MEDS: LASIX TAB PO SCH (06:10)
[2022-12-09 06:19] LABS: BASOPHILS # (AUTO) 0.1 K/uL (0-0.2); BASOPHILS % (AUTO) 0.7 % (0.0-3.0); EOSINOPHILS # (AUTO) 0.2 K/ul (0.0-0.7); EOSINOPHILS % (AUTO) 2.9 % (0.0-7.0); HEMATOCRIT 42.6 % (42.0-52.0); HEMOGLOBIN 12.8 g/dl (14.0-18.0); IMMATURE GRANULOCYTE % (AUTO) 0.3 % (0.0-5.0); LYMPHOCYTES # (AUTO) 1.8 K/uL (0.60-3.4); LYMPHOCYTES % (AUTO) 23.9 (10.0-50.0); MEAN CORPUSCULAR HEMOGLOBIN 26.8 pg (27.0-31.0); MEAN CORPUSCULAR VOLUME 89.3 fl (80.0-94.0); MONOCYTES # (AUTO) 0.6 K/uL (0.4-2.0); MONOCYTES % (AUTO) 8.5 (0-10); NEUTROPHILS # (AUTO) 4.8 K/ul (2.0-6.9); NEUTROPHILS % (AUTO) 63.7 % (42.2-75.2); PLATELET COUNT 260 10^3/uL (140-440); RDW COEFFICIENT OF VARIATION 14.5 % (11.6-14.8); RED BLOOD COUNT 4.77 10^6/ul (4.70-6.10); WHITE BLOOD COUNT 7.49 K/ul (4.2-10.2)
[2022-12-09 06:33] LABS: ALANINE AMINOTRANSFERASE 23.7 U/L (0-50); ALBUMIN 3.72 g/dL (3.5-5.0); ALKALINE PHOSPHATASE 66.9 U/L (38-126); ASPARTATE AMINO TRANSFERASE 22.7 U/L (17-59); BILIRUBIN,TOTAL 0.55 mg/dL (0.2-1.3); BLOOD UREA NITROGEN 16.5 mg/dL (9-20); CALCIUM 8.17 mg/dL (8.4-10.2); CARBON DIOXIDE 36.3 mmol/L (22-30.0); CHLORIDE 99.7 mmol/L (98-107); CREATININE 0.98 mg/dL (0.60-1.10); GLUCOSE 133.1 mg/dL (74-106); POTASSIUM 3.86 mmol/L (3.5-5.1); SODIUM 141.3 mmol/L (134.5-145); TOTAL PROTEIN 6.83 g/dL (6.3-8.2)
[2022-12-09] MEDS: TOPROL XL PO SCH (08:49)
[2022-12-09] MEDS: ZESTRIL PO SCH (08:49)
[2022-12-09] MEDS: ASPIRIN CHEWABLE PO SCH (08:49)
[2022-12-09] MEDS: LOVENOX SUBCUT SCH (08:49)
[2022-12-09] MEDS: ALDACTONE PO SCH (08:49)
[2022-12-09] MEDS: LEVEMIR SUBCUT SCH (08:50)
--- NOTE | 2022-12-09 10:16 | PCM.PROG ---
Provider Provider: VINAYAK ROBLES, [facility] Chief Complaint Chief Complaint: NEW ONSET CHF Vital Signs Vital Signs: Vital Signs: Last 24 Hours 12/08/22 14:00 12/08/22 12:57 12/08/22 19:00 Temperature 97.2 F L Temperature Source Temporal Artery Scan Pulse Rate 93 Pulse Rate [Apical] Respiratory Rate 16 Blood Pressure 109/74 Blood Pressure Mean 85 Blood Pressure Location Left Arm Blood Pressure Position Sitting O2 Sat by Pulse Oximetry 96 Oxygen Delivery Method Room Air Oxygen Flow Rate Weight Telemetry Type Remote Telemetry Remote Telemetry Telemetry Monitoring Continues Continues Telemetry Heart Rate 97 102 H EKG NV Interval 0.20 0.11 L EKG QRS Interval 0.12 H 0.07 Telemetry Strip Reading SR WITH BBB SINUS TACH 12/08/22 21:42 12/08/22 20:00 12/09/22 01:00 Temperature 97.1 F L Temperature Source Oral Pulse Rate 99 Pulse Rate [Apical] 96 Respiratory Rate 16 18 Blood Pressure 124/83 Blood Pressure Mean 96 Blood Pressure Location Left Arm Blood Pressure Position Sitting O2 Sat by Pulse Oximetry 97 Oxygen Delivery Method Room Air Room Air Oxygen Flow Rate Weight Telemetry Type Remote Telemetry Telemetry Monitoring Continues Telemetry Heart Rate 98 EKG NV Interval 0.13 EKG QRS Interval 0.09 Telemetry Strip Reading SR 12/09/22 06:00 12/09/22 06:00 12/09/22 07:00 Temperature 98.1 F Temperature Source Oral Pulse Rate 98 Pulse Rate [Apical] Respiratory Rate 18 Blood Pressure 124/90 Blood Pressure Mean 101 Blood Pressure Location Left Arm Blood Pressure Position Supine O2 Sat by Pulse Oximetry 96 Oxygen Delivery Method Nasal Cannula Oxygen Flow Rate 2 Weight 271 lb 9 oz Telemetry Type Remote Telemetry Telemetry Monitoring Continues Telemetry Heart Rate 98 EKG NV Interval 0.20 EKG QRS Interval 0.12 H Telemetry Strip Reading SR WITH BBB 12/09/22 08:00 Temperature Temperature Source Pulse Rate Pulse Rate [Apical] 100 Respiratory Rate 16 Blood Pressure Blood Pressure Mean Blood Pressure Location Blood Pressure Position O2 Sat by Pulse Oximetry Oxygen Delivery Method Room Air Oxygen Flow Rate Weight Telemetry Type Telemetry Monitoring Telemetry Heart Rate EKG NV Interval EKG QRS Interval Telemetry Strip Reading Lab Results Lab Results: Lab Results: Last 24 Hours 12/09/22 06:05 WBC 7.49 RBC 4.77 Hgb 12.8 L Hct 42.6 MCV 89.3 MCH 26.8 L MCHC 30.0 L RDW Coeff of [place] 14.5 Plt Count 260 Immature Gran % (Auto) 0.3 Neut % (Auto) 63.7 Lymph % (Auto) 23.9 [place] % (Auto) 8.5 Eos % (Auto) 2.9 Baso % (Auto) 0.7 Neut # (Auto) 4.8 Lymph # (Auto) 1.8 [place] # (Auto) 0.6 Eos # (Auto) 0.2 Baso # (Auto) 0.1 Immature Gran # (Auto) 0.0 Sodium 141.3 Potassium 3.86 Chloride 99.7 Carbon Dioxide 36.3 H Anion Gap 9.16 BUN 16.5 Creatinine 0.98 Estimated GFR (MDRD) 82.00 BUN/Creatinine Ratio 16.83 Glucose 133.1 H Calcium 8.17 L Total Bilirubin 0.55 AST 22.7 ALT 23.7 Alkaline Phosphatase 66.9 Total Protein 6.83 Albumin 3.72 Globulin 3.11 Albumin/Globulin Ratio 1.19 Additional Comments Additional Comments: I have independently reviewed and interpreted the labs/EKGs/imaging ordered during this hospital stay. I have reviewed outside records that are available in our EMR that pertain to medical stay including imaging/notes/labs from previous visits. Active Medications Active Medications: Medications Generic Name Dose Route Start Last Admin Trade Name Freq PRN Reason Stop Dose Admin Acetaminophen 650 mg 12/06/22 13:56 Acetaminophen 325 Mg Tablet PO Q4H PRN Mild Pain Aspirin 81 mg 12/08/22 08:30 12/09/22 08:49 Aspirin 81 Mg Tab.Chew PO 81 mg DAILYWM SHAVONNE Administration Enoxaparin Sodium 40 mg 12/07/22 09:00 12/09/22 08:49 Enoxaparin Sodium 40 Mg/0.4 Ml Syr SUBCUT 40 mg DAILY SHAVONNE Administration Furosemide 40 mg 12/09/22 06:30 12/09/22 06:10 Furosemide 40 Mg Tablet PO 40 mg QDAC SHAVONNE Administration Hydralazine HCl 10 mg 12/06/22 14:01 Hydralazine Hcl 20 Mg/Ml Sdv IVP Q6H PRN Hypertension Insulin Detemir 25 unit 12/06/22 15:30 12/09/22 08:50 Insulin Detemir 100 Units/Ml SUBCUT 25 unit DAILY SHAVONNE Administration Insulin Human Regular 0 unit 12/06/22 14:00 12/08/22 21:37 Insulin Regular, Human 100 Unit/Ml (3ml) Vial SUBCUT 6 unit PRN PRN Administration Hyperglycemia Protocol Lisinopril 40 mg 12/06/22 15:30 12/09/22 08:49 Lisinopril 40 Mg Tablet PO 40 mg DAILY SHAVONNE Administration Metoprolol Succinate 50 mg 12/07/22 13:00 12/09/22 08:49 Metoprolol Succinate 50 Mg Tab.Er.24h PO 50 mg DAILY SHAVONNE Administration Non-Formulary Medication 0.5 mg 12/10/22 09:00 Semaglutide [Ozempic] SUBCUT WEEKLY SHAVONNE Rosuvastatin Calcium 20 mg 12/06/22 21:00 12/08/22 20:52 Rosuvastatin Calcium 10 Mg Tablet PO 20 mg BEDTIME SHAVONNE Administration Spironolactone 25 mg 12/09/22 09:00 12/09/22 08:49 Spironolactone 25 Mg Tablet PO 25 mg DAILY SHAVONNE Administration Plan Plan: 1. Acute Hypoxic Respiratory Failure in the setting of New Onset CHF - resolved, no longer requiring oxygen continuously 2. Systolic CHF, new onset - echo completed yesterday showing EF 40-45% with significant cardiomegaly, paradoxical septal motion, and trace pleural effusion; transitioned to PO lasix today, also taking metoprolol 50 mg daily, aldactone 25 mg daily, aspirin 81 mg daily, and upon discharge starting jardiance 5 mg daily, refer to cardiology 3. Ascites - has hx of hepatomegaly since 2013, liver enzymes normal, likely related to #2 4. Cellulitis to abdomen - resolved, likely from fluid retention, no abx needed 5. Mesenteric lymphadenopathy - new finding since last CT abd in 2012, recommend follow-up with PCP upon discharge for repeat imaging and possible referral to oncology to r/o cancer 6. Hypertension - chronic, restarted home medications, 7. Hyperlipidemia - chronic, continue home medications, lipid panel normal 8. Diabetes Mellitus, Type 2 - noncomplaint, does not check sugar at home, has not been taking his medications as prescribed, A1C 7.9, hold oral agents, accuchecks ACHS with ssi, continue home long acting 9. Tobacco use - discussed cessation, nicotine patch if patient desires DVT Prophylaxis: Lovenox Plan to D/C Saturday after successful transition to oral medication. Will need establishment with PCP and Cardiology referral upon discharge. Review Statement Review Statement: I have personally discussed and reviewed the patient's visit/currently labs/imaging/decision making with Dr. Johnson, my supervising attending. Greater that 50 minutes spent with patient, 50% of the time spent with this patient was devoted to counseling and coordination of care.
[2022-12-09] MEDS: HUMULIN R SUBCUT PRN ×3 (11:24→21:03)
[2022-12-09] MEDS: CRESTOR PO SCH (21:03)
[2022-12-09 21:59] VITALS: RESP 18
[2022-12-10 05:21] LABS: BASOPHILS # (AUTO) 0.1 K/uL (0-0.2); BASOPHILS % (AUTO) 0.7 % (0.0-3.0); EOSINOPHILS # (AUTO) 0.2 K/ul (0.0-0.7); EOSINOPHILS % (AUTO) 1.8 % (0.0-7.0); HEMATOCRIT 42.2 % (42.0-52.0); IMMATURE GRANULOCYTE % (AUTO) 0.2 % (0.0-5.0); LYMPHOCYTES # (AUTO) 2.1 K/uL (0.60-3.4); LYMPHOCYTES % (AUTO) 23.5 (10.0-50.0); MEAN CORPUSCULAR HGB CONC 30.8 (31.8-35.4); MEAN CORPUSCULAR VOLUME 87.6 fl (80.0-94.0); MONOCYTES # (AUTO) 0.6 K/uL (0.4-2.0); MONOCYTES % (AUTO) 6.7 (0-10); NEUTROPHILS # (AUTO) 5.9 K/ul (2.0-6.9); NEUTROPHILS % (AUTO) 67.1 % (42.2-75.2); PLATELET COUNT 269 10^3/uL (140-440); RDW COEFFICIENT OF VARIATION 14.5 % (11.6-14.8); RED BLOOD COUNT 4.82 10^6/ul (4.70-6.10); WHITE BLOOD COUNT 8.75 K/ul (4.2-10.2)
[2022-12-10 05:26] VITALS: BP 131/90; PULSE 99; TEMP 96.2
[2022-12-10 05:38] LABS: ALANINE AMINOTRANSFERASE 26.1 U/L (0-50); ALBUMIN 3.98 g/dL (3.5-5.0); ASPARTATE AMINO TRANSFERASE 27.3 U/L (17-59); BILIRUBIN,TOTAL 0.57 mg/dL (0.2-1.3); BLOOD UREA NITROGEN 14.9 mg/dL (9-20); CALCIUM 8.64 mg/dL (8.4-10.2); CARBON DIOXIDE 33.2 mmol/L (22-30.0); CHLORIDE 102.6 mmol/L (98-107); CREATININE 0.91 mg/dL (0.60-1.10); GLUCOSE 161.1 mg/dL (74-106); POTASSIUM 3.87 mmol/L (3.5-5.1); SODIUM 140.4 mmol/L (134.5-145); TOTAL PROTEIN 7.06 g/dL (6.3-8.2)
[2022-12-10] MEDS: LASIX TAB PO SCH (05:42)
[2022-12-10] MEDS: HUMULIN R SUBCUT PRN ×2 (06:29→11:18)
[2022-12-10] MEDS: ASPIRIN CHEWABLE PO SCH (08:31)
[2022-12-10] MEDS: TOPROL XL PO SCH (08:32)
[2022-12-10] MEDS: ZESTRIL PO SCH (08:32)
[2022-12-10] MEDS: ALDACTONE PO SCH (08:32)
[2022-12-10] MEDS: LEVEMIR SUBCUT SCH (08:33)
[2022-12-10] MEDS: LOVENOX SUBCUT SCH (08:39)
--- NOTE | 2022-12-10 10:37 | ECHO2D ---
Date of Exam: 12/07/2022 Ordering Physician: HOSPITALIST/ DR. MICHAEL VELASQUEZ Room #: 117 Reason for Echo: DM2, HTN, HYPERLIPIDEMIA, CHF M-Mode Normal Adult Results LV Dimensions Normal Adult Results AoV Opening excursions >1.6 >1.6 LVEDD-base- 3.5-5.8 6.1 Ao root dimensions 2.0-3.7 LVESD-base- 3.1-4.6 L. Atrium dimensions 1.9-3.8 Post. Wall thickness 0.8-1.1 1.4 IV septum (thickness) 0.7-1.2 1.6 Post. Wall excursion 0.72-1.3 NORMAL Septal motion -- Systolic motion R. Ventricular cavity 1.5-2.0 50 LVEF 60% 40-45% Paradoxical septal wall motion YES 2-D : ENLARGED RIGHT VENTRICLE, LEFT ATRIAL, RIGHT ATRIAL AND LEFT VENTRICLE CAVITIES--PARADOXICAL SEPTAL MOTION--VALVES ARE NORMAL, TRACE PERICARDIAL EFFUSION--NO THROMBUS M-MODE: MV: NORMAL AV: NORMAL TV: NORMAL PV: CHAMBER SIZE: ENLARGED LEFT ATRIAL, LEFT VENTRICLE, RIGHT VENTRICLE AND RIGHT ATRIAL CAVITIES WALL MOTION: PARADOXICAL SEPTAL MOTION PERICARDIUM: TRACE PERICARDIAL EFFUSION INTERPRETATION: 1. LEFT VENTRICLE HYPERTROPHY (MODERATE) 2. ENLARGED RIGHT VENTRICLE, RIGHT ATRIAL, LEFT ATRIAL AND LEFT VENTRICLE CAVITIES 3. PARADOXICAL SEPTAL MOTION (EJECTION FRACTION 40 TO 45%) 4. 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
--- NOTE | 2022-12-10 11:57 | DCSUM ---
Admission Date Admission Date: 12/06/22 Discharge Date Discharge Date: 12/10/22 Admission Diagnosis Admission Diagnosis: 1. Acute hypoxic respiratory failure in setting of new onset CHF 2. Ascites Discharge Diagnosis Discharge Diagnosis: 1. Acute Hypoxic Respiratory Failure in the setting of New Onset HF - resolved 2. Systolic CHF, new onset, improved 3. Ascites , improved 4. Abdominal lymphadenopathy 5. Hypertension 6. Hyperlipidemia 7. Diabetes Mellitus, Type 2 8. Tobacco use 9. CAROLYNN, noncompliant Hospital Provider Hospital Provider: IBIS MELTON PA-C, [place] Primary Care Physician Primary Care Physician: MICHAEL VELASQUEZ MD Summary of History and Physical Summary of History and Physical: 47-year-old male with past medical history of uncontrolled hypertension, type II diabetes, hyperlipidemia, and obesity presented to the ER with complaints of shortness of breath and abdominal pain. Patient states that over the last month he feels he has gained anywhere from 30 to 40 pounds and due to the abdominal pain he has been unable to give himself his insulin injections. States that he is short of breath at all times but worse on exertion. Describes abdominal pain as a fullness and tightness. Location of pain is is throughout entire abdomen. States he has also experienced swelling in his bilateral lower extremities and has had difficulty wearing socks. Denies any known history of congestive heart failure. Denies any chest pain, fever, chills, body aches, nausea, vomiting, or diarrhea. States that he has not been taking his medications as prescribed including his insulin. Also has not been checking his blood sugar on a regular basis. Upon questioning patient states he has not seen a primary care provider in over a year. Last primary care provider dismissed patient due to no-show appointments. In ER patient's O2 saturation was dropping down into the 80s and he was placed on 2 L via nasal cannula. Hospital Course Subjective: Patient was started on Lasix IV. He diuresed well. He has lost almost 20 pounds if the weights are accurate. He is feeling much better. His edema has improved. His echo did show that he has an EF of 40 to 45% which is decreased from his last echo. He denies alcohol or drug use. He was started on systolic heart failure medications including Jardiance, metoprolol, aspirin, lisinopril, and Aldactone. His insurance does cover Entresto and so we will stop lisinopril and start on a starting dose of Entresto. He was able to tolerate the medication changes well. Discussed he needs close follow-up with cardiology as this is a new diagnosis for him and he needs close monitoring of his renal function and electrolytes. Discussed to weigh himself daily and call PCP or cardiology with a 3+ weight gain. Encouraged a low-sodium diet. Encouraged medication compliance. Also discussed with him that his CT of his abdomen and pelvis showed some lymphadenopathy and also signs of early cirrhosis. A GI referral has been initiated for him regarding this as well especially due to his age of only 47. Patient was initially requiring oxygen but was weaned to room air and doing well. He is feeling ready for discharge. Reviewed his medication changes with him and encouraged close follow-up with his PCP. He agrees to plan of care. Also recommended wearing his cpap for his CAROLYNN. Appearance: Pleasant, No Apparent Distress and Alert HEENT: MMM and Supple CVS: No Murmur, No Rubs and No Gallop Abdomen: Soft, Non-Tender and Other (+mildly distended, improved ) Respiratory: No Accessory Muscle Use Extremities: No Edema (1+ pitting edema, improved from admission ) Vital Signs: Most Recent Vital Signs Temperature 96.2 F L 12/10/22 05:24 Temperature Source Temporal Artery Scan 12/10/22 05:24 Temperature Source Oral 12/06/22 05:58 Pulse Rate 99 12/10/22 05:24 Respiratory Rate 18 12/10/22 05:24 Blood Pressure 131/90 12/10/22 05:24 Blood Pressure Mean 103 12/10/22 05:24 Blood Pressure Left Arm 136/95 12/06/22 13:43 Blood Pressure Location Right Radial Artery 12/10/22 05:24 Blood Pressure Position Supine 12/10/22 05:24 O2 Sat by Pulse Oximetry 94 L 12/10/22 05:24 Oxygen Delivery Method Room Air 12/10/22 08:00 Oxygen Flow Rate 1 12/10/22 05:24 Height 5 ft 6 in 12/06/22 13:43 Weight 272 lb 11.2 oz 12/10/22 05:24 Telemetry Type Remote Telemetry 12/10/22 07:00 Telemetry Monitoring Continues 12/10/22 07:00 Telemetry Heart Rate 87 12/10/22 07:00 EKG TN Interval 0.15 12/10/22 07:00 EKG QRS Interval 0.10 12/10/22 07:00 EKG QT Interval 0.34 12/07/22 01:00 Telemetry Strip Reading NSR 12/10/22 07:00 Imaging: EXAM: CHEST CTA WITH CONTRAST (PULMONARY ARTERY) IMPRESSION: No pulmonary embolus. Third spacing with small to moderate right and trace left pleural effusions, small to moderate pericardial effusion, small volume ascites, and body wall edema. Cardiomegaly. Dilated main pulmonary artery suggesting pulmonary arterial hypertension. Coronary calcifications. EXAM: CT ABDOMEN WITH CONTRAST. CT PELVIS WITH CONTRAST. IMPRESSION: 1. Generalized edematous state with pleural effusions, pericardial effusion, ascites, mesenteric/retroperitoneal edema and subcutaneous edema. Anterior lower abdominal skin thickening could indicate cellulitis. 2. Hepatomegaly with fatty infiltration. Question early cirrhosis. 3. Diverticulosis. 4. Left renal cyst. 5. Atherosclerosis. 6. Nonspecific right iliac lymphadenopathy with additional prominent retroperi toneal, iliac, pelvic and inguinal lymph nodes. Lab Results Last 24 Hours: 12/10/22 05:06 WBC 8.75 RBC 4.82 Hgb 13.0 L Hct 42.2 MCV 87.6 MCH 27.0 MCHC 30.8 L RDW Coeff of [place] 14.5 Plt Count 269 Immature Gran % (Auto) 0.2 Neut % (Auto) 67.1 Lymph % (Auto) 23.5 [place] % (Auto) 6.7 Eos % (Auto) 1.8 Baso % (Auto) 0.7 Neut # (Auto) 5.9 Lymph # (Auto) 2.1 [place] # (Auto) 0.6 Eos # (Auto) 0.2 Baso # (Auto) 0.1 Immature Gran # (Auto) 0.0 Sodium 140.4 Potassium 3.87 Chloride 102.6 Carbon Dioxide 33.2 H Anion Gap 8.47 BUN 14.9 Creatinine 0.91 Estimated GFR (MDRD) 89.00 BUN/Creatinine Ratio 16.37 Glucose 161.1 H Calcium 8.64 Total Bilirubin 0.57 AST 27.3 ALT 26.1 Alkaline Phosphatase 70.0 Total Protein 7.06 Albumin 3.98 Globulin 3.08 Albumin/Globulin Ratio 1.29 Discharge Instructions Discharge Planning: Discharge Planning > [address] Rush Johnson. If patient is discharged with left ventricular systolic dysfunction: Discharged with a beta yessy? YES Discharged with an ishmael/arb? YES Discharge Medications: Medications at Discharge (Home Meds & RX) insulin syringes (disposable) 1 mL #100 ea 05/19/20 metformin 1,000 mg tablet 1,000 mg PO BID #60 tabs 04/27/21 pen needle, diabetic 31 gauge x 3/16" (TRUEplus Pen Needle) ##100 11/06/21 hydrochlorothiazide 25 mg tablet 25 mg PO QDAY #90 tabs 02/01/22 semaglutide 0.25 mg or 0.5 mg (2 mg/1.5 mL) subcutaneous pen injector (Ozempic) 0.5 mg (0.4 mL) subcut QWEEK #1.5 mL 02/01/22 insulin detemir U-100 100 unit/mL (3 mL) subcutaneous pen (Levemir FlexTouch U- 100 Insulin) 25 unit (0.25 mL) subcut QDAY #15 mL 03/27/22 rosuvastatin 20 mg tablet See Rx Instructions .Route .COMPLEX #30 tabs 05/18/22 aspirin 81 mg chewable tablet 81 mg PO DAILYWM #30 tabs 12/10/22 empagliflozin 10 mg tablet (Jardiance) 10 mg PO QAM #30 tabs 12/10/22 furosemide 40 mg tablet 40 mg PO QDAC #30 tabs 12/10/22 metoprolol succinate 50 mg tablet,extended release 24 hr 50 mg PO DAILY #30 tabs 12/10/22 sacubitril 24 mg-valsartan 26 mg tablet (Entresto) 1 tab PO BID #60 tabs 12/10/22 spironolactone 25 mg tablet 25 mg PO DAILY #30 tabs 12/10/22 Discharge Plan Discharge Discharge Orders: Discharge Patient (ONCE); Ordered 12/10/22 Ordered By: IBIS MELTON Activity Restrictions/Additional Instructions: DISCHARGE TO HOME DX: HEART FAILURE, NEW ONSET ACTIVITY: TOLERATED DIET: HEART HEALTHY, LOW SODIUM MEDICATION COMPLIANCE ENCOURAGED WEIGH SELF DAILY AND CALL PCP OR CARDIOLOGY WITH 3+ LB WEIGHT GAIN YOU HAVE AN APPOINTMENT WITH [facility], [facility], ON December AT 9:15AM. SHOULD YOU HAVE ANY QUESTIONS OR NEED TO RESCHEDULE YOU CAN CONTACT THEIR OFFICE AT [phone]. YOU HAVE BEEN REFERRED TO [facility]. THEY SHOULD BE IN TOUCH WITH YOU TO SET UP AN APPOINTMENT. SHOULD YOU HAVE ANY QUESTIONS OR NEED TO CONTACT THEM, THEIR NUMBER IS [phone]. A REFERRAL HAS BEEN SENT TO [facility] AT THE [facility] IN [place], [place]. THEY ARE REVIEWING YOUR REFERRAL AND WILL BE IN CONTACT WITH YOU. ADDRESS: [address] [place] [address] [address] [place] [address]. PHONE NUMBER: [phone]. Instructions: Heart Failure (GEN) Care Plan Goals: Problem: Fluid Volume Excess Goal: Maintain adequate fluid volume Instructions: Maintain optimal head of bed placement Monitor respiratory status Monitor for edema Monitor hydration status Patient Disposition: HOME SELF-CARE Prescriptions: New aspirin 81 mg Tablet,Chewable 81 mg PO DAILYWM Qty: 30 0RF furosemide 40 mg Tablet 40 mg PO QDAC Qty: 30 0RF metoprolol succinate 50 mg Tablet Extended Release 24 Hr 50 mg PO DAILY Qty: 30 0RF spironolactone 25 mg Tablet 25 mg PO DAILY Qty: 30 0RF Entresto 24-26 mg tablet 1 tab PO BID Qty: 60 0RF Continued (DME) insulin syringes (disposable) 1 mL syringe See Rx Instructions .ROUTE .MEDSUPPLY Qty: 100 3RF Rx Instructions: once per day metformin 1,000 mg tablet 1,000 mg PO BID Qty: 60 5RF Rx Instructions: 500 qhs x7D, then 500BID x 7D, then 500am and 1000pm x 7D then 1000 BID. (DME) pen needle, diabetic [TRUEplus Pen Needle] 31 gauge x 3/16" needle See Rx Instructions .ROUTE .COMPLEX Qty: 100 0RF Dose Instruction: USE TWICE DAILY Rx Instructions: USE TWICE DAILY Levemir FlexTouch U100 Insulin 100 unit/mL (3 mL) insulin pen 25 unit subcut QDAY Qty: 15 2RF rosuvastatin 20 mg tablet See Rx Instructions .ROUTE .COMPLEX Qty: 30 0RF Dose Instruction: TAKE ONE TABLET DAILY Rx Instructions: TAKE ONE TABLET DAILY Jardiance 10 mg tablet 10 mg PO QAM Qty: 30 0RF Ozempic 0.25 mg or 0.5 mg(2 mg/1.5 mL) pen injector 0.5 mg subcut QWEEK Qty: 1.5 12RF Rx Instructions: for 4 doses then increase to 0.5mg. See back in 3 months. hydrochlorothiazide 25 mg tablet 25 mg PO QDAY Qty: 90 2RF Discontinued lisinopril 40 mg tablet 40 mg PO QDAY Qty: 90 2RF Did you review [place] for ALL controlled substances?: Not Applicable Discussed opioids are addictive and Narcan is available by prescription or from pharmacy.: No Condition: Good
== END 2022-12-10 12:35 | disposition home or self-care (01) | DRG 291 ==
LOC: ED 05:55 → MEDSURG B 13:19
PROVIDERS: ADMIT Hospitalist; ATTEND Physician Assistant
DX: G47.33 Obstructive sleep apnea (adult) (pediatric); E66.9 Obesity, unspecified; Z99.81 Dependence on supplemental oxygen; Z79.4 Long term (current) use of insulin; I31.39 Other pericardial effusion (noninflammatory); J96.01 Acute respiratory failure with hypoxia; K76.0 Fatty (change of) liver, not elsewhere classified; Z51.81 Encounter for therapeutic drug level monitoring; I50.20 Unspecified systolic (congestive) heart failure; E11.9 Type 2 diabetes mellitus without complications; F17.290 Nicotine dependence, other tobacco product, uncomplicated; Z79.82 Long term (current) use of aspirin; Z79.899 Other long term (current) drug therapy; L53.9 Erythematous condition, unspecified; I11.0 Hypertensive heart disease with heart failure; I88.0 Nonspecific mesenteric lymphadenitis; Z68.44 Body mass index [BMI] 60.0-69.9, adult; E78.5 Hyperlipidemia, unspecified; R18.8 Other ascites; I50.21 Acute systolic (congestive) heart failure; J91.8 Pleural effusion in other conditions classified elsewhere; R00.0 Tachycardia, unspecified; R06.02 Shortness of breath; Z79.84 Long term (current) use of oral hypoglycemic drugs